=== PATIENT | male | born 1940 | race Caucasian/White ===

== ENCOUNTER 2018-06-18 12:12 | Outpatient (REF) | payer OTHER, SELFPAY ==
[2018-06-18 20:04] LABS: COMMENT (LAB VIEW ONLY) 51.95 mg/dL; Microalb ug/mg Crea 100.7 ug/mg Cr
== END 2018-06-18 12:32 ==
LOC: NCHCN 12:12
PROVIDERS: PCP Nurse Practitioner Family; Visit Provider Family Medicine
DX: E11.9 Type 2 diabetes mellitus without complications (principal)
CPT/HCPCS: 82043; 82570

== ENCOUNTER 2018-06-23 21:39 | Emergency (ER) | payer OTHER, SELFPAY ==
[2018-06-23 21:45] VITALS: BP 161/81; PULSE 87; RESP 16; TEMP 36.4; O2SAT 98
--- NOTE | 2018-06-23 21:50 | ED.GENADUL_ITS ---
Discharge Plan Disposition Patient Disposition: HOME Condition: Good Discharge Details Chief Complaint: FlankPain Clinical Impression: Calculus of proximal left ureter, Bladder calculus Primary Care Provider: Gertrude Cohen ED Provider: Gino York [place] Meds and New Rx's Prescriptions: New tamsulosin 0.4 mg capsule 0.4 mg PO DAILY Qty: 30 RF: 0 Continue insulin lispro [Humalog U-100 Insulin] 100 UNIT/1 ML solution Sub-Q TID RF: 0 losartan-hydrochlorothiazide [Hyzaar] 1 EACH tablet 1 ea PO DAILY RF: 0 insulin glargine [Lantus Solostar U-100 Insulin] 100 UNIT/1 ML insulin pen 50 unit SQ HS RF: 0 metoprolol tartrate 100 mg Tablet 100 mg PO BID RF: 0 Discharge Instructions Instructions: Tamsulosin (By mouth), Renal Colic (ED) Additional Instructions: Medication as directed to try to help passage of stone. Tylenol or Motrin as needed for pain. Keep appointment with [facility] urology but if problems please contact for follow-up sooner. Return to emergency department for fever, chills, increasing/uncontrolled pain, vomiting, inability to urinate. Referrals: [facility] [Outside] Medical Decision Making Patient here with left lower quadrant pain radiating to the back. Has history of kidney stones. Has known large bladder stone. I do not have access to his records and imaging that were done in [place]. He is not febrile and he looks well. His exam is unremarkable. Will obtain labs, urine, stone study. Currently tolerating pain and has no nausea so we will not medicate. Patient's white count is normal with no shift. Kidney function is baseline with creatinine of 1.6. Urinalysis positive for greater than 50 red cells and 20-50 white cells with few bacteria. CT scan does show a 1.5 x 1.4 cm bladder stone. He also has an enlarged prostate. He has a 7 mm UPJ stone with mild hydronephrosis. Case discussed with Dr. Brandt from urology at [facility]. Specific question regarding the white cells present in the urine without fever or white count. Likely this is related to bladder irritation from the bladder stone. Would send urine for culture but would not start antibiotics. Did discuss use of Flomax which she typically does recommend. Discussed this with patient and . Warned regarding side effects. Will start and give first dose tonight. Follow-up with urology at [facility] as planned. Return to ED for fever, chills , increasing/persistent pain, vomiting, other concerns. Lab Data Lab results reviewed: Yes I reviewed the patient's lab results. HPI General Mode of arrival: ambulatory . Date/Time Provider Initiated Documentation: 06/23/18 21:49 . Limitations to Documentation: no limitations . Information obtained by: patient and RN notes reviewed . HPI Narrative: Patient presents with complaint of left lower quadrant abdominal pain radiating to the left flank and back. Onset was this morning. At times it is rather intense. Had one episode of nausea and vomiting this evening. Has not had any fever or chills. Has a prior history of kidney stones. Has a known 1 inch bladder stone from imaging done earlier this month while on vacation in [place]. Just finished a round of Keflex for possible UTI. Pain at this point tolerable and he has no nausea. He has occasionally seen some blood in his urine over the last 24 hours. He has an appointment to see urology at [facility] next month. Related Data Home Medications Medication Instructions Recorded Confirmed insulin glargine [Lantus Solostar 50 unit SQ HS 03/02/13 06/23/18 U-100 Insulin] insulin lispro [Humalog U-100 0 units SUB-Q TID 03/02/13 06/23/18 Insulin] losartan-hydrochlorothiazide 1 ea PO DAILY 03/02/13 06/23/18 [Hyzaar] metoprolol tartrate 100 mg PO BID 06/23/18 06/23/18 tamsulosin 0.4 mg PO DAILY #30 cap 06/24/18 Previous Rx's Medication Instructions Recorded tamsulosin 0.4 mg PO DAILY #30 cap 06/24/18 Allergies Allergy/AdvReac Type Severity Reaction Status Date / Time No Known Allergies Allergy Unverified 06/23/18 21:49 General Stated Complaint: FlankPain CHIKA: 3 Review of Systems Constitutional Denies chills, Denies fever(s), Denies headache(s), Denies malaise and Denies weakness ENT Denies headache(s) and Denies neck pain Cardiovascular Denies chest pain, Denies pedal edema, Denies edema, Denies leg edema, Denies lightheadedness, Denies palpitations and Denies dyspnea Respiratory Denies dyspnea Gastrointestinal Reports abdominal pain, Denies diarrhea, Reports nausea and Reports vomiting Genitourinary Reports hematuria, Denies difficulty urinating, Denies dysuria, Denies urinary frequency and Reports urinary urgency Musculoskeletal Denies myalgias, Denies arthralgias, Denies joint swelling, Denies neck pain and Denies numbness Integumentary/Breasts Denies erythema and Denies rash Neurologic Denies confusion, Denies headache(s), Denies numbness and Denies weakness Psychiatric Denies confusion Endocrine Denies palpitations [facility] Medical History BPH (benign prostatic hyperplasia) (Chronic) Diabetes mellitus (Chronic) HTN (hypertension) (Chronic) Kidney stones (Chronic) Social History Smoking/Tobacco Use Status: Former Tobacco Use Surgical History H/O lithotripsy (Inactive) S/P TURP (Inactive) Exam Const General: cooperative, comfortable and no acute distress Orientation: alert and oriented x3 HENMT Head: normocephalic and atraumatic Mouth: moist mucous membranes Neck Neck: full ROM, trachea midline and supple Resp Effort & Inspection: normal respiratory effort Auscultation: clear to auscultation bilaterally Cardio Rate: regular rate Rhythm: regular rhythm Heart Sounds: S1 normal and S2 normal Pulses: normal peripheral pulses GI Inspection: non-distended Palpation: soft, not firm, no guarding and nontender Back/Spine/Pelvis Back: no CVA tenderness Thoracic/Lumbar Spine: thoraco-lumbar ROM normal Skin General skin exam: no erythema Rashes: no rashes Trauma: no lacerations or abrasions Other: warm and dry Neuro General: alert, oriented x3, no focal motor deficits and CN's II-XI intact bilaterally Cognition: normal cognition Speech: speech normal Sensory Exam: no sensory deficits noted Extrem General: normal to inspection, full ROM and no clubbing, cyanosis or edema Psych Appearance: grossly normal Mental Status: mental status grossly normal Affect: normal affect Attitude: cooperative Course Vital Signs Temperature 97.6 F 06/23/18 21:45 Pulse 87 06/23/18 21:45 Respiratory Rate 16 06/23/18 21:45 Blood Pressure 161/81 H 06/23/18 21:45 Pulse Oximetry 98 06/23/18 21:45 Temperature 97.6 F 06/23/18 21:45 Temperature Source Tympanic 06/23/18 21:45 Pulse 87 06/23/18 21:45 Respiratory Rate 16 06/23/18 21:45 Blood Pressure 161/81 H 06/23/18 21:45 Blood Pressure Position Sitting 06/23/18 21:45 Pulse Oximetry 98 06/23/18 21:45 Oxygen Delivery Method Room Air 06/23/18 21:45 Oxygen Flow Rate 0 06/23/18 21:45 Pain Level 4 06/23/18 21:45
[2018-06-23 22:07] LABS: Bilirubin Small (Negative); Blood Large (Negative); Clarity Clear; Glucose Negative (Negative); Ketones Negative (Negative); Leukocyte Esterase Trace (Negative); Nitrite Negative (Negative); Specific Gravity 1.025 (1.005-1.025); Urobilinogen 0.2 EU/dL (Up TO 0.2); pH 5.5 (5-8)
--- NOTE | 2018-06-23 22:10 | DI.CT_ITS ---
SYMPTOM/DIAGNOSIS: LEFT FLANK PAIN ABDOMINAL AND PELVIC CT : 06/23 CT examination of the abdomen and pelvis was performed without contrast administration. Images obtained through the lung bases were unremarkable. Visualized portions of the liver and spleen appear normal. Gallbladder is CT normal. No biliary dilatation. Pancreas is unremarkable. Abdominal aorta is of normal diameter. No significant abdominal wall hernia. Appendix appears normal. No evidence of diverticulitis or bowel obstruction. There is an apparent large calculus in the urinary bladder. Urinary bladder is nearly empty but may have a thickened wall. There are bilateral renal calculi with multiple renal calculi noted on the left and there is a 7 mm in diameter obstructing left UPJ stone. No additional ureteral calculi seen. CONCLUSION: Bilateral renal calculi noted with an obstructing 7 mm in diameter left UPJ calculus. Urinary bladder calculus also noted. Urinary bladder is nearly empty but there may be urinary bladder wall thickening, infection or neoplastic disease not excluded. Additional evaluation with cystoscopy should be considered.
[2018-06-23 22:24] LABS: Epithelial Cells Rare HPF (Negative); Other Cells Rare Renal (Negative); RBC >50 (0-2); WBC 20-50 HPF (0-5)
[2018-06-23 22:25] LABS: Bacteria Few HPF (Negative); C & S Indicated? Yes; Casts 5-10 Hyaline LPF (Negative); Crystals Negative HPF (Negative); Mucus Trace (Negative)
[2018-06-23] MEDS: Normal Saline 1,000 ML 1000 ML IV (23:05)
[2018-06-23] MEDS: Normal Saline Flush 10 ML SYR IVP (23:06)
[2018-06-23 23:10] LABS: Abs Immature Grans 0.03 k/cumm (0.0-0.09); Absolute Basophil Count 0.02 k/cumm (0.0-0.2); Absolute Eosinophil Count 0.14 k/cumm (0.0-0.7); Absolute Lymphocyte Count 0.88 k/cumm (1.2-3.4); Absolute Monocyte Count 0.76 k/cumm (0.11-0.7); Absolute Neutrophil Count 6.99 k/cumm (1.2-6.7); Basophils % 0.2; Eosinophils % 1.6; HCT 44.4 % (40.0-50.0); HGB 15.5 g/dL (13.5-17.5); Immature Grans % 0.3; Mean Corp. HGB Concentration 34.9 g/dL (32.0-36.0); Mean Corpuscular Hemoglobin 31.3 pg (27.0-33.0); Mean Corpuscular Volume 89.5 fL (80-95); Mean Platelet Volume 10.2 fL (8.0-11.0); Monocytes % 8.6; Neutrophils % 79.3; Platelet Count 165 x1000/uL (130-400); RBC 4.96 m/cumm (4.50-6.00); RBC Distribution Width 13.5 % (11.8-14.1); White Blood Cell Count 8.82 k/cumm (4.4-10.8)
[2018-06-23 23:17] LABS: Anion Gap 10.4 mmol/L (3-11); BUN 27 mg/dL (7-18); CO2 25.6 mmol/L (21.0-32.0); CREATININE 1.65 mg/dL (0.70-1.30); Calcium 8.5 mg/dL (8.5-10.1); Chloride 104 mmol/L (98-107); Estimated GFR 40.76 (mL/min/1.73m2); Glucose 183 mg/dL (70-100); Potassium 4.3 mmol/L (3.5-5.1); Sodium 140 mmol/L (136-145)
--- NOTE | 2018-06-23 23:30 | DI.VRAD_ITS ---
EXAM: CT Abdomen and Pelvis Without Intravenous Contrast CLINICAL HISTORY: 77 years old, male; Pain; Abdominal pain; Flank; Left; Patient HX: Left flank pain TECHNIQUE: Axial computed tomography images of the abdomen and pelvis without intravenous contrast. Coronal and sagittal reformatted images were created and reviewed. COMPARISON: No relevant prior studies available. FINDINGS: Lung bases: Unremarkable. No mass. No consolidation. ABDOMEN: Liver: Hepatic steatosis. Gallbladder and bile ducts: Unremarkable. No calcified stones. No ductal dilation. Pancreas: Unremarkable. No ductal dilation. Spleen: Unremarkable. No splenomegaly. Adrenals: Unremarkable. No mass. Kidneys and ureters: Nonobstructing 2 mm calculus within the collecting system of the right kidney. Multiple calculi within the collecting system of the left kidney. Mild left-sided hydronephrosis caused by 7 mm calculus at the left ureteropelvic junction. Stomach and bowel: Unremarkable. No obstruction. No mucosal thickening. PELVIS: Appendix: Normal appendix. Bladder: Urinary bladder is under distended, suggestion of mild thickening of the urinary bladder wall. Calculus within the lumen of the urinary bladder measures approximately 1.5 x 1.4 cm. Reproductive: Enlarged prostate, 6.3 x 5.4 cm. ABDOMEN and PELVIS: Intraperitoneal space: Unremarkable. No free air. No significant fluid collection. Bones/joints: Degenerative changes within the thoracic and lumbar spine. No acute fracture. No dislocation. Soft tissues: The abdomen is obese. Small bilateral fat-containing inguinal hernias. Vasculature: Atherosclerotic abdominal aorta and branches. No abdominal aortic aneurysm. Lymph nodes: Unremarkable. No enlarged lymph nodes. IMPRESSION: Bilateral nephrolithiasis. Mild left-sided hydronephrosis caused by 7 mm calculus at the left ureteropelvic junction. Urinary bladder calculus, 1.4 x 1.5 cm. See body of the report for the remainder of nonacute ancillary findings. Dictated and Authenticated by: Michi Montgomery MD. Ordering:KIMBER LEMUS MD
--- NOTE | 2018-06-23 23:59 | NUR.NOTE ---
Nursing Note: pt given crackers and apple juice per pt request with approval of . Tolerates this well.
[2018-06-24 00:30] VITALS: BP 145/81; PULSE 80; RESP 15; TEMP 36.4; O2SAT 98
[2018-06-24] MEDS: Tamsulosin 0.4 MG CAPCR PO (00:30)
== END 2018-06-24 00:51 | disposition home or self-care (01) ==
PROVIDERS: Emergency Provider Emergency Medicine; PCP Nurse Practitioner Family
DX: N13.2 Hydronephrosis with renal and ureteral calculous obstruction (principal); N21.0 Calculus in bladder; R11.2 Nausea with vomiting, unspecified; Z87.442 Personal history of urinary calculi; E11.9 Type 2 diabetes mellitus without complications; Z79.4 Long term (current) use of insulin; I10 Essential (primary) hypertension
CPT/HCPCS: 36415; 80048; 96360; 99284; 74176; 81003; 81015; 85025; 87086; 99285

== ENCOUNTER 2018-07-08 15:51 | Emergency (ER) | payer OTHER, SELFPAY ==
[2018-07-08 15:57] VITALS: BP 173/80; PULSE 75; RESP 12; TEMP 36.7; O2SAT 97
[2018-07-08 16:21] LABS: HCT 42.3 % (40.0-50.0); HGB 14.4 g/dL (13.5-17.5); Mean Corpuscular Hemoglobin 30.4 pg (27.0-33.0); Mean Corpuscular Volume 89.4 fL (80-95); Mean Platelet Volume 9.8 fL (8.0-11.0); Platelet Count 189 x1000/uL (130-400); RBC 4.73 m/cumm (4.50-6.00); RBC Distribution Width 12.7 % (11.8-14.1); White Blood Cell Count 9.25 k/cumm (4.4-10.8)
[2018-07-08 16:29] LABS: Anion Gap 8.2 mmol/L (3-11); BUN 37 mg/dL (7-18); CO2 28.8 mmol/L (21.0-32.0); CREATININE 2.54 mg/dL (0.70-1.30); Calcium 8.3 mg/dL (8.5-10.1); Chloride 101 mmol/L (98-107); Estimated GFR 24.78 (mL/min/1.73m2); Glucose 327 mg/dL (70-100); Potassium 4.3 mmol/L (3.5-5.1); Sodium 138 mmol/L (136-145)
[2018-07-08] MEDS: Lidocaine 2% Jelly 11 ML SYR (16:30)
[2018-07-08 16:33] LABS: INR 1.1 (1.0-3.5); Prothrombin Time 10.7 sec (9.3-10.8)
[2018-07-08 16:51] LABS: Bilirubin Negative (Negative); Blood Large (Negative); Glucose >=1000 mg/dL (Negative); Ketones Negative (Negative); Leukocyte Esterase Negative (Negative); Nitrite Negative (Negative); Urobilinogen 0.2 EU/dL (Up TO 0.2); pH 6.5 (5-8)
[2018-07-08 16:52] LABS: Clarity Cloudy
[2018-07-08 16:55] LABS: C & S Indicated? Yes; RBC >50 (0-2)
--- NOTE | 2018-07-08 17:01 | W.ED.GENAD ---
Discharge Plan Disposition Patient Disposition: HOME Condition: Good Discharge Details Chief Complaint: FlankPain Clinical Impression: Acute urinary retention Primary Care Provider: Gertrude Cohen ED Provider: Danielito Jacobs Home Meds and New Rx's Prescriptions: New levofloxacin 750 mg tablet 750 mg PO DAILY Qty: 6 RF: 0 ondansetron 4 mg tablet,disintegrating 4 mg PO TID PRN (Reason: nausea and vomiting) 5 Days Qty: 20 RF: 0 Continue insulin lispro [Humalog U-100 Insulin] 100 UNIT/1 ML solution Sub-Q TID RF: 0 losartan-hydrochlorothiazide [Hyzaar] 1 EACH tablet 1 ea PO DAILY RF: 0 insulin glargine [Lantus Solostar U-100 Insulin] 100 UNIT/1 ML insulin pen 50 unit SQ HS RF: 0 metoprolol tartrate 100 mg Tablet 100 mg PO BID RF: 0 tamsulosin 0.4 mg capsule 0.4 mg PO DAILY Qty: 30 RF: 0 Discharge Instructions Instructions: Urinary Retention in Men (ED), Urinary Leg Bag (GEN) Additional Instructions: follow up as scheduled with your urologist if you have fevers, severe uncontrolled pain or persistent vomit return to the emergency department. Discharge Data Discharge Physician: Danielito Jacobs Medical Decision Making 77 yo male with hx of recently diagnosed kidney stone and is due to see urology at [facility] on 07/18 per pt, comes in with hematuria and difficulty urinating today. Denies fevers and has no pain in the left flank after taking ibuprofen earlier. I suspect the hematuria is due to the kidney stone but is unable to urinate, will have [facility] labs reassuring, has mild vikash likely from the kidney stone, no leukocytosis or fevers so doubt pyelo or infected stone. Given the blood and difficulty urinating which could be from the stone, but given could be uti will start abx and advised f/u with urology and return precautions given Differential Diagnosis kidney stone, hematuria, uti HPI General Mode of arrival: ambulatory. Date/Time Provider Initiated Documentation: 07/08/18 16:05. Limitations to Documentation: no limitations. Information obtained by: patient. History of Present Illness 77 year old M presents to the emergency department with the chief complaint of hematuria, Patient started experiencing this day(s) (1) and it has been constant. No relieving factors improve symptom(s), No exacerbating factors reported . Patient notes no other symptoms.. Related Data Home Medications Medication Instructions Recorded Confirmed insulin glargine [Lantus Solostar 50 unit SQ HS 03/02/13 07/08/18 U-100 Insulin] insulin lispro [Humalog U-100 0 units SUB-Q TID 03/02/13 07/08/18 Insulin] losartan-hydrochlorothiazide 1 ea PO DAILY 03/02/13 07/08/18 [Hyzaar] metoprolol tartrate 100 mg PO BID 06/23/18 07/08/18 tamsulosin 0.4 mg PO DAILY #30 cap 06/24/18 07/08/18 levofloxacin 750 mg PO DAILY #6 tab 07/08/18 ondansetron 4 mg PO TID PRN 5 Days #20 tab 07/08/18 Previous Rx's Medication Instructions Recorded tamsulosin 0.4 mg PO DAILY #30 cap 06/24/18 levofloxacin 750 mg PO DAILY #6 tab 07/08/18 ondansetron 4 mg PO TID PRN 5 Days #20 tab 07/08/18 Allergies Allergy/AdvReac Type Severity Reaction Status Date / Time No Known Allergies Allergy Unverified 07/08/18 16:01 General Stated Complaint: FlankPain CHIKA: 3 Review of Systems Review of Systems All systems reviewed & are unremarkable except as noted in HPI and below Constitutional Denies chills, Denies fever(s) and Denies weakness Eyes Denies loss of vision ENT Denies change in voice Cardiovascular Denies chest pain and Denies dyspnea Respiratory Denies dyspnea Gastrointestinal Denies abdominal pain, Denies nausea and Denies vomiting Genitourinary Denies dysuria Musculoskeletal Denies joint swelling Integumentary/Breasts Denies rash Neurologic Denies loss of vision and Denies weakness Psychiatric Denies depression Endocrine Denies cold intolerance and Denies heat intolerance Allergic/Immunologic Reports urticaria [facility] Medical History BPH (benign prostatic hyperplasia) (Chronic) Diabetes mellitus (Chronic) HTN (hypertension) (Chronic) Kidney stones (Chronic) Social History Smoking/Tobacco Use Status: Former Tobacco Use Surgical History H/O lithotripsy (Inactive) S/P TURP (Inactive) Exam Const General: no acute distress Orientation: alert HENKS Head: normal to inspection Ears: external ears normal General nose exam: external nose normal Mouth: moist mucous membranes Eyes General: appearance normal, both eyes and all related structures Neck Neck: normal visual inspection Resp Effort & Inspection: normal respiratory effort and able to speak in complete sentences Cardio Rate: regular rate Skin General skin exam: no rashes or lesions noted Neuro General: alert and oriented x3 Extrem General: normal to inspection Psych Mental Status: mental status grossly normal Course Vital Signs Temperature 36.7 C 07/08/18 15:57 Pulse 75 07/08/18 15:57 Respiratory Rate 12 07/08/18 15:57 Blood Pressure 173/80 H 07/08/18 15:57 Pulse Oximetry 97 07/08/18 15:57 Temperature 36.7 C 07/08/18 15:57 Temperature Source Temporal Artery Scan 07/08/18 15:57 Pulse 75 07/08/18 15:57 Respiratory Rate 12 07/08/18 15:57 Respiratory Effort Non-Labored 07/08/18 15:59 Blood Pressure 173/80 H 07/08/18 15:57 Blood Pressure Position Sitting 07/08/18 15:57 Pulse Oximetry 97 07/08/18 15:57 Oxygen Delivery Method Blow by 07/08/18 15:57 Oxygen Flow Rate 0 07/08/18 15:57 Pain Level 3 07/08/18 15:57 Lab/Test Results Lab/Test Results: 07/08/18 16:30 Urine - Reflex from Ua Urine Culture - Pending Laboratory Tests Range/Units 07/08/18 07/08/18 07/08/18 16:14 16:14 16:14 WBC (4.4-10.8) k/cumm 9.25 RBC (4.50-6.00) m/cumm 4.73 Hgb (13.5-17.5) g/dL 14.4 Hct (40.0-50.0) % 42.3 MCV (80-95) fL 89.4 MCH (27.0-33.0) pg 30.4 MCHC (32.0-36.0) g/dL 34.0 RDW (11.8-14.1) % 12.7 Plt Count (130-400) x1000/uL 189 MPV (8.0-11.0) fL 9.8 PT (9.3-10.8) sec 10.7 INR (1.0-3.5) 1.1 Sodium (136-145) mmol/L 138 Potassium (3.5-5.1) mmol/L 4.3 Chloride (98-107) mmol/L 101 Carbon Dioxide (21.0-32.0) mmol/L 28.8 Anion Gap (3-11) mmol/L 8.2 BUN (7-18) mg/dL 37 H Creatinine (0.70-1.30) mg/dL 2.54 H Estimated GFR/1.73 m2 (mL/min/1.73m2) 24.78 Glucose (70-100) mg/dL 327 H Calcium (8.5-10.1) mg/dL 8.3 L Urine Color (Yellow) Urine Clarity Urine pH (5-8) Ur Specific Kimper (1.005-1.025) Urine Protein (Negative) mg/dL Urine Ketones (Negative) mg/dL Urine Blood (Negative) Urine Nitrite (Negative) Urine Bilirubin (Negative) Urine Urobilinogen (Up TO 0.2) EU/dL Ur Leukocyte Esterase (Negative) Urine RBC (0-2) Urine WBC Ur Epithelial Cells Urine Crystals Urine Bacteria Urine Mucus Ur Culture Indicated? Urine Glucose (Negative) mg/dL Range/Units 07/08/18 16:30 WBC (4.4-10.8) k/cumm RBC (4.50-6.00) m/cumm Hgb (13.5-17.5) g/dL Hct (40.0-50.0) % MCV (80-95) fL MCH (27.0-33.0) pg MCHC (32.0-36.0) g/dL RDW (11.8-14.1) % Plt Count (130-400) x1000/uL MPV (8.0-11.0) fL PT (9.3-10.8) sec INR (1.0-3.5) Sodium (136-145) mmol/L Potassium (3.5-5.1) mmol/L Chloride (98-107) mmol/L Carbon Dioxide (21.0-32.0) mmol/L Anion Gap (3-11) mmol/L BUN (7-18) mg/dL Creatinine (0.70-1.30) mg/dL Estimated GFR/1.73 m2 (mL/min/1.73m2) Glucose (70-100) mg/dL Calcium (8.5-10.1) mg/dL Urine Color (Yellow) Red Urine Clarity Cloudy Urine pH (5-8) 6.5 Ur Specific Kimper (1.005-1.025) 1.020 Urine Protein (Negative) mg/dL 100 H Urine Ketones (Negative) mg/dL Negative Urine Blood (Negative) Large H Urine Nitrite (Negative) Negative Urine Bilirubin (Negative) Negative Urine Urobilinogen (Up TO 0.2) EU/dL 0.2 Ur Leukocyte Esterase (Negative) Negative Urine RBC (0-2) >50 H Urine WBC Not Applicable Ur Epithelial Cells Not Applicable Urine Crystals Not Applicable Urine Bacteria Not Applicable Urine Mucus Not Applicable Ur Culture Indicated? Yes Urine Glucose (Negative) mg/dL >=1000 H
--- NOTE | 2018-07-08 17:05 | ED.GENADUL_ITS ---
Discharge Plan Disposition Patient Disposition: HOME Condition: Good Discharge Details Chief Complaint: FlankPain Clinical Impression: Acute urinary retention Primary Care Provider: Gertrude Cohen ED Provider: Danielito Jacobs Home Meds and New Rx's Prescriptions: New levofloxacin 750 mg tablet 750 mg PO DAILY Qty: 6 RF: 0 ondansetron 4 mg tablet,disintegrating 4 mg PO TID PRN (Reason: nausea and vomiting) 5 Days Qty: 20 RF: 0 Continue insulin lispro [Humalog U-100 Insulin] 100 UNIT/1 ML solution Sub-Q TID RF: 0 losartan-hydrochlorothiazide [Hyzaar] 1 EACH tablet 1 ea PO DAILY RF: 0 insulin glargine [Lantus Solostar U-100 Insulin] 100 UNIT/1 ML insulin pen 50 unit SQ HS RF: 0 metoprolol tartrate 100 mg Tablet 100 mg PO BID RF: 0 tamsulosin 0.4 mg capsule 0.4 mg PO DAILY Qty: 30 RF: 0 Discharge Instructions Instructions: Urinary Retention in Men (ED), Urinary Leg Bag (GEN) Additional Instructions: follow up as scheduled with your urologist if you have fevers, severe uncontrolled pain or persistent vomit return to the emergency department. Discharge Data Discharge Physician: Danielito Jacobs Medical Decision Making 77 yo male with hx of recently diagnosed kidney stone and is due to see urology at [facility] on 07/18 per pt, comes in with hematuria and difficulty urinating today. Denies fevers and has no pain in the left flank after taking ibuprofen earlier. I suspect the hematuria is due to the kidney stone but is unable to urinate, will have nursing place [facility] labs reassuring, has mild vikash likely from the kidney stone, no leukocytosis or fevers so doubt pyelo or infected stone. Given the blood and difficulty urinating which could be from the stone, but given could be uti will start abx and advised f/u with urology and return precautions given Differential Diagnosis kidney stone, hematuria, uti HPI General Mode of arrival: ambulatory . Date/Time Provider Initiated Documentation: 07/08/18 16:05 . Limitations to Documentation: no limitations . Information obtained by: patient . History of Present Illness 77 year old M presents to the emergency department with the chief complaint of hematuria, Patient started experiencing this day(s) (1) and it has been constant. No relieving factors improve symptom(s), No exacerbating factors reported . Patient notes no other symptoms.. Related Data Home Medications Medication Instructions Recorded Confirmed insulin glargine [Lantus Solostar 50 unit SQ HS 03/02/13 07/08/18 U-100 Insulin] insulin lispro [Humalog U-100 0 units SUB-Q TID 03/02/13 07/08/18 Insulin] losartan-hydrochlorothiazide 1 ea PO DAILY 03/02/13 07/08/18 [Hyzaar] metoprolol tartrate 100 mg PO BID 06/23/18 07/08/18 tamsulosin 0.4 mg PO DAILY #30 cap 06/24/18 07/08/18 levofloxacin 750 mg PO DAILY #6 tab 07/08/18 ondansetron 4 mg PO TID PRN 5 Days #20 tab 07/08/18 Previous Rx's Medication Instructions Recorded tamsulosin 0.4 mg PO DAILY #30 cap 06/24/18 levofloxacin 750 mg PO DAILY #6 tab 07/08/18 ondansetron 4 mg PO TID PRN 5 Days #20 tab 07/08/18 Allergies Allergy/AdvReac Type Severity Reaction Status Date / Time No Known Allergies Allergy Unverified 07/08/18 16:01 General Stated Complaint: FlankPain CHIKA: 3 Review of Systems Review of Systems All systems reviewed & are unremarkable except as noted in HPI and below Constitutional Denies chills, Denies fever(s) and Denies weakness Eyes Denies loss of vision ENT Denies change in voice Cardiovascular Denies chest pain and Denies dyspnea Respiratory Denies dyspnea Gastrointestinal Denies abdominal pain, Denies nausea and Denies vomiting Genitourinary Denies dysuria Musculoskeletal Denies joint swelling Integumentary/Breasts Denies rash Neurologic Denies loss of vision and Denies weakness Psychiatric Denies depression Endocrine Denies cold intolerance and Denies heat intolerance Allergic/Immunologic Reports urticaria [facility] Medical History BPH (benign prostatic hyperplasia) (Chronic) Diabetes mellitus (Chronic) HTN (hypertension) (Chronic) Kidney stones (Chronic) Social History Smoking/Tobacco Use Status: Former Tobacco Use Surgical History H/O lithotripsy (Inactive) S/P TURP (Inactive) Exam Const General: no acute distress Orientation: alert HENMD Head: normal to inspection Ears: external ears normal General nose exam: external nose normal Mouth: moist mucous membranes Eyes General: appearance normal, both eyes and all related structures Neck Neck: normal visual inspection Resp Effort & Inspection: normal respiratory effort and able to speak in complete sentences Cardio Rate: regular rate Skin General skin exam: no rashes or lesions noted Neuro General: alert and oriented x3 Extrem General: normal to inspection Psych Mental Status: mental status grossly normal Course Vital Signs Temperature 36.7 C 07/08/18 15:57 Pulse 75 07/08/18 15:57 Respiratory Rate 12 07/08/18 15:57 Blood Pressure 173/80 H 07/08/18 15:57 Pulse Oximetry 97 07/08/18 15:57 Temperature 36.7 C 07/08/18 15:57 Temperature Source Temporal Artery Scan 07/08/18 15:57 Pulse 75 07/08/18 15:57 Respiratory Rate 12 07/08/18 15:57 Respiratory Effort Non-Labored 07/08/18 15:59 Blood Pressure 173/80 H 07/08/18 15:57 Blood Pressure Position Sitting 07/08/18 15:57 Pulse Oximetry 97 07/08/18 15:57 Oxygen Delivery Method Blow by 07/08/18 15:57 Oxygen Flow Rate 0 07/08/18 15:57 Pain Level 3 07/08/18 15:57 Lab/Test Results Lab/Test Results: 07/08/18 16:30 Urine - Reflex from Ua Urine Culture - Pending Laboratory Tests Range/Units 07/08/18 07/08/18 07/08/18 16:14 16:14 16:14 WBC (4.4-10.8) k/cumm 9.25 RBC (4.50-6.00) m/cumm 4.73 Hgb (13.5-17.5) g/dL 14.4 Hct (40.0-50.0) % 42.3 MCV (80-95) fL 89.4 MCH (27.0-33.0) pg 30.4 MCHC (32.0-36.0) g/dL 34.0 RDW (11.8-14.1) % 12.7 Plt Count (130-400) x1000/uL 189 MPV (8.0-11.0) fL 9.8 PT (9.3-10.8) sec 10.7 INR (1.0-3.5) 1.1 Sodium (136-145) mmol/L 138 Potassium (3.5-5.1) mmol/L 4.3 Chloride (98-107) mmol/L 101 Carbon Dioxide (21.0-32.0) mmol/L 28.8 Anion Gap (3-11) mmol/L 8.2 BUN (7-18) mg/dL 37 H Creatinine (0.70-1.30) mg/dL 2.54 H Estimated GFR/1.73 m2 (mL/min/1.73m2) 24.78 Glucose (70-100) mg/dL 327 H Calcium (8.5-10.1) mg/dL 8.3 L Urine Color (Yellow) Urine Clarity Urine pH (5-8) Ur Specific Shickley (1.005-1.025) Urine Protein (Negative) mg/dL Urine Ketones (Negative) mg/dL Urine Blood (Negative) Urine Nitrite (Negative) Urine Bilirubin (Negative) Urine Urobilinogen (Up TO 0.2) EU/dL Ur Leukocyte Esterase (Negative) Urine RBC (0-2) Urine WBC Ur Epithelial Cells Urine Crystals Urine Bacteria Urine Mucus Ur Culture Indicated? Urine Glucose (Negative) mg/dL Range/Units 07/08/18 16:30 WBC (4.4-10.8) k/cumm RBC (4.50-6.00) m/cumm Hgb (13.5-17.5) g/dL Hct (40.0-50.0) % MCV (80-95) fL MCH (27.0-33.0) pg MCHC (32.0-36.0) g/dL RDW (11.8-14.1) % Plt Count (130-400) x1000/uL MPV (8.0-11.0) fL PT (9.3-10.8) sec INR (1.0-3.5) Sodium (136-145) mmol/L Potassium (3.5-5.1) mmol/L Chloride (98-107) mmol/L Carbon Dioxide (21.0-32.0) mmol/L Anion Gap (3-11) mmol/L BUN (7-18) mg/dL Creatinine (0.70-1.30) mg/dL Estimated GFR/1.73 m2 (mL/min/1.73m2) Glucose (70-100) mg/dL Calcium (8.5-10.1) mg/dL Urine Color (Yellow) Red Urine Clarity Cloudy Urine pH (5-8) 6.5 Ur Specific Shickley (1.005-1.025) 1.020 Urine Protein (Negative) mg/dL 100 H Urine Ketones (Negative) mg/dL Negative Urine Blood (Negative) Large H Urine Nitrite (Negative) Negative Urine Bilirubin (Negative) Negative Urine Urobilinogen (Up TO 0.2) EU/dL 0.2 Ur Leukocyte Esterase (Negative) Negative Urine RBC (0-2) >50 H Urine WBC Not Applicable Ur Epithelial Cells Not Applicable Urine Crystals Not Applicable Urine Bacteria Not Applicable Urine Mucus Not Applicable Ur Culture Indicated? Yes Urine Glucose (Negative) mg/dL >=1000 H
[2018-07-08] MEDS: LEVOFLOXACIN 500 MG, LEVOFLOXACIN 250 MG 750 MG PO (17:18)
[2018-07-08] MEDS: Ondansetron O.D.T. 4 MG TABEF PO (17:19)
[2018-07-08 17:42] VITALS: BP 168/75; PULSE 77; RESP 14; TEMP 37; O2SAT 95
== END 2018-07-08 17:44 | disposition home or self-care (01) ==
LOC: ER 17:49
PROVIDERS: Emergency Provider Emergency Medicine; PCP Nurse Practitioner Family
DX: R33.9 Retention of urine, unspecified (principal); R31.9 Hematuria, unspecified
CPT/HCPCS: 36415; 51702; 80048; 85027; 99283; 81003; 81015; 85610; 87086

== ENCOUNTER 2018-07-09 08:07 | Inpatient (IN) | payer OTHER, SELFPAY ==
[2018-07-09 08:26] VITALS: BP 157/64; PULSE 98; RESP 16; TEMP 36.2; O2SAT 97
--- NOTE | 2018-07-09 08:41 | W.ED.GENAD ---
Discharge Plan Disposition Patient Disposition: [facility] INPATIENT Condition: Improving Discharge Details Chief Complaint: Urinary Clinical Impression: Hematuria of undiagnosed cause Primary Care Provider: Gertrude Cohen ED Provider: Cristian Lau Home Meds and New Rx's Prescriptions: No Action insulin lispro [Humalog U-100 Insulin] 100 UNIT/1 ML solution Sub-Q TID RF: 0 losartan-hydrochlorothiazide [Hyzaar] 1 EACH tablet 1 ea PO DAILY RF: 0 insulin glargine [Lantus Solostar U-100 Insulin] 100 UNIT/1 ML insulin pen 50 unit SQ HS RF: 0 levofloxacin 750 mg tablet 750 mg PO DAILY Qty: 6 RF: 0 ondansetron 4 mg tablet,disintegrating 4 mg PO TID PRN (Reason: nausea and vomiting) 5 Days Qty: 20 RF: 0 metoprolol tartrate 100 mg Tablet 100 mg PO BID RF: 0 tamsulosin 0.4 mg capsule 0.4 mg PO DAILY Qty: 30 RF: 0 Medical Decision Making 77-year-old male with recurrent hematuria. He was seen in the emergency room last night and Riggs catheter was placed. He has known intravesicular and intrarenal kidney stones. He is afebrile and pleasant without significant distress. Riggs was changed to 20-gauge in patient with return of bloody urine. Patient did subsequently have recurrent obstruction of catheter with bloody urine. Laboratories obtained which show stable hematocrit but creatinine which is risen to 2.3 from baseline of approximately 1.6. Case discussed with urology, Dr. Reid who saw the patient in consultation, will place three-way catheter, plan for admission with probable cystoscopy tomorrow morning. Lab Data Lab results reviewed: Yes I reviewed the patient's lab results. Laboratory Tests Range/Units 07/09/18 07/09/18 09:06 09:06 WBC (4.4-10.8) k/cumm 11.31 H RBC (4.50-6.00) m/cumm 4.48 L Hgb (13.5-17.5) g/dL 13.8 Hct (40.0-50.0) % 39.9 L MCV (80-95) fL 89.1 MCH (27.0-33.0) pg 30.8 MCHC (32.0-36.0) g/dL 34.6 RDW (11.8-14.1) % 12.6 Plt Count (130-400) x1000/uL 183 MPV (8.0-11.0) fL 10.0 Immature Gran % 0.3 Neutrophils % 85.6 Lymphocytes % 6.1 Monocytes % 6.3 Eosinophils % 1.5 Basophils % 0.2 Absolute Neutrophils (1.2-6.7) k/cumm 9.68 H Absolute Lymphocytes (1.2-3.4) k/cumm 0.69 L Absolute Monocytes (0.11-0.7) k/cumm 0.71 H Absolute Eosinophils (0.0-0.7) k/cumm 0.17 Absolute Basophils (0.0-0.2) k/cumm 0.02 Sodium (136-145) mmol/L 136 Potassium (3.5-5.1) mmol/L 4.1 Chloride (98-107) mmol/L 101 Carbon Dioxide (21.0-32.0) mmol/L 24.6 Anion Gap (3-11) mmol/L 10.4 BUN (7-18) mg/dL 36 H Creatinine (0.70-1.30) mg/dL 2.38 H Estimated GFR/1.73 m2 (mL/min/1.73m2) 26.71 Glucose (70-100) mg/dL 257 H Calcium (8.5-10.1) mg/dL 8.1 L Total Bilirubin (0.2-1.0) mg/dL 0.6 AST (15-37) U/L 11 L ALT (12-78) U/L 17 Alkaline Phosphatase (46-116) U/L 87 Total Protein (6.4-8.2) g/dL 7.0 Albumin (3.4-5.0) g/dL 3.0 L HPI General Mode of arrival: ambulatory. Date/Time Provider Initiated Documentation: 07/09/18 08:25. Limitations to Documentation: no limitations. Information obtained by: patient and family. History of Present Illness described as moderate, Quality is described as constant, and it has been intermittent. No relieving factors improve symptom(s), No exacerbating factors reported . HPI Narrative: 77-year-old male who states that he has had hematuria and flank pain intermittently since beginning of May when he was initially seen in [facility]. Was seen again in the emergency department 2 weeks ago for recurrent hematuria and is been told he has a large bladder stone as well as small kidney stones. He was seen last night for urinary retention and hematuria, Riggs catheter placed, and now presents for urinary retention with recurrent blood clots and hematuria. Denies fever, vomiting. He states that he has otherwise been well. He has not had any recent urology follow-up but does have plans to see [facility] 18 July Related Data Home Medications Medication Instructions Recorded Confirmed insulin glargine [Lantus Solostar 50 unit SQ HS 03/02/13 07/09/18 U-100 Insulin] insulin lispro [Humalog U-100 0 units SUB-Q TID 03/02/13 07/09/18 Insulin] losartan-hydrochlorothiazide 1 ea PO DAILY 03/02/13 07/09/18 [Hyzaar] metoprolol tartrate 100 mg PO BID 06/23/18 07/09/18 tamsulosin 0.4 mg PO DAILY #30 cap 06/24/18 07/09/18 levofloxacin 750 mg PO DAILY #6 tab 07/08/18 07/09/18 ondansetron 4 mg PO TID PRN 5 Days #20 tab 07/08/18 07/09/18 Previous Rx's Medication Instructions Recorded tamsulosin 0.4 mg PO DAILY #30 cap 06/24/18 levofloxacin 750 mg PO DAILY #6 tab 07/08/18 ondansetron 4 mg PO TID PRN 5 Days #20 tab 07/08/18 Allergies Allergy/AdvReac Type Severity Reaction Status Date / Time No Known Allergies Allergy Unverified 07/09/18 08:28 General Stated Complaint: Urinary CHIKA: 4 Review of Systems Review of Systems 8 systems reviewed and otherwise negative [facility] Medical History BPH (benign prostatic hyperplasia) (Chronic) Diabetes mellitus (Chronic) HTN (hypertension) (Chronic) Kidney stones (Chronic) Social History Smoking/Tobacco Use Status: Former Tobacco Use Surgical History H/O lithotripsy (Inactive) S/P TURP (Inactive) Exam Narrative Exam Narrative: GEN: awake, alert, oriented 3. Pleasant, well groomed, interactive. HEAD: Normocephalic, atraumatic ENT: Mucous membranes moist, oropharynx unremarkable, External ear exam unremarkable EYES: PERRL, EOMI NECK: Full ROM, no MARIA DOLORES, no menigismus CHEST/RESP: Nontender, clear to auscultation bilateral, no wheeze/rhonchi/rales CARDIOVASCULAR: RRR, no murmur, rub isa. 2+ Rad pulse bilateral ABDOMEN: Soft, nontender, no mass. +Bowel sounds. Patient is circumcised. Riggs catheter in place. No hematuria at the time of exam. No swelling EXT: Full ROM, no edema, no rash Neuro: Grossly normal neurologic exam, conversant, interactive. Psych: Speech fluent, thoughts congruent, affect normal Course Vital Signs Temperature 36.2 C L 07/09/18 08:26 Pulse 98 H 07/09/18 08:26 Respiratory Rate 16 07/09/18 08:26 Blood Pressure 157/64 H 07/09/18 08:26 Pulse Oximetry 97 07/09/18 08:26 Temperature 36.2 C L 07/09/18 08:26 Temperature Source Skin 07/09/18 08:26 Pulse 98 H 07/09/18 08:26 Respiratory Rate 16 07/09/18 08:26 Respiratory Effort Non-Labored 07/09/18 08:26 Blood Pressure 157/64 H 07/09/18 08:26 Blood Pressure Position Sitting 07/09/18 08:26 Pulse Oximetry 97 07/09/18 08:26 Oxygen Delivery Method Room Air 07/09/18 08:26 Oxygen Flow Rate 0 07/09/18 08:26 End Tidal Co2 2 07/09/18 08:26
--- NOTE | 2018-07-09 08:44 | ED.GENADUL_ITS ---
Discharge Plan Disposition Patient Disposition: [facility] INPATIENT Condition: Improving Discharge Details Chief Complaint: Urinary Clinical Impression: Hematuria of undiagnosed cause Primary Care Provider: Gertrude Cohen ED Provider: Cristian Lau Home Meds and New Rx's Prescriptions: No Action insulin lispro [Humalog U-100 Insulin] 100 UNIT/1 ML solution Sub-Q TID RF: 0 losartan-hydrochlorothiazide [Hyzaar] 1 EACH tablet 1 ea PO DAILY RF: 0 insulin glargine [Lantus Solostar U-100 Insulin] 100 UNIT/1 ML insulin pen 50 unit SQ HS RF: 0 levofloxacin 750 mg tablet 750 mg PO DAILY Qty: 6 RF: 0 ondansetron 4 mg tablet,disintegrating 4 mg PO TID PRN (Reason: nausea and vomiting) 5 Days Qty: 20 RF: 0 metoprolol tartrate 100 mg Tablet 100 mg PO BID RF: 0 tamsulosin 0.4 mg capsule 0.4 mg PO DAILY Qty: 30 RF: 0 Medical Decision Making 77-year-old male with recurrent hematuria. He was seen in the emergency room last night and Riggs catheter was placed. He has known intravesicular and intrarenal kidney stones. He is afebrile and pleasant without significant distress. Riggs was changed to 20-gauge in patient with return of bloody urine. Patient did subsequently have recurrent obstruction of catheter with bloody urine. Laboratories obtained which show stable hematocrit but creatinine which is risen to 2.3 from baseline of approximately 1.6. Case discussed with urology, Dr. Reid who saw the patient in consultation, will place three-way catheter, plan for admission with probable cystoscopy tomorrow morning. Lab Data Lab results reviewed: Yes I reviewed the patient's lab results. Laboratory Tests Range/Units 07/09/18 07/09/18 09:06 09:06 WBC (4.4-10.8) k/cumm 11.31 H RBC (4.50-6.00) m/cumm 4.48 L Hgb (13.5-17.5) g/dL 13.8 Hct (40.0-50.0) % 39.9 L MCV (80-95) fL 89.1 MCH (27.0-33.0) pg 30.8 MCHC (32.0-36.0) g/dL 34.6 RDW (11.8-14.1) % 12.6 Plt Count (130-400) x1000/uL 183 MPV (8.0-11.0) fL 10.0 Immature Gran % 0.3 Neutrophils % 85.6 Lymphocytes % 6.1 Monocytes % 6.3 Eosinophils % 1.5 Basophils % 0.2 Absolute Neutrophils (1.2-6.7) k/cumm 9.68 H Absolute Lymphocytes (1.2-3.4) k/cumm 0.69 L Absolute Monocytes (0.11-0.7) k/cumm 0.71 H Absolute Eosinophils (0.0-0.7) k/cumm 0.17 Absolute Basophils (0.0-0.2) k/cumm 0.02 Sodium (136-145) mmol/L 136 Potassium (3.5-5.1) mmol/L 4.1 Chloride (98-107) mmol/L 101 Carbon Dioxide (21.0-32.0) mmol/L 24.6 Anion Gap (3-11) mmol/L 10.4 BUN (7-18) mg/dL 36 H Creatinine (0.70-1.30) mg/dL 2.38 H Estimated GFR/1.73 m2 (mL/min/1.73m2) 26.71 Glucose (70-100) mg/dL 257 H Calcium (8.5-10.1) mg/dL 8.1 L Total Bilirubin (0.2-1.0) mg/dL 0.6 AST (15-37) U/L 11 L ALT (12-78) U/L 17 Alkaline Phosphatase (46-116) U/L 87 Total Protein (6.4-8.2) g/dL 7.0 Albumin (3.4-5.0) g/dL 3.0 L HPI General Mode of arrival: ambulatory . Date/Time Provider Initiated Documentation: 07/09/18 08:25 . Limitations to Documentation: no limitations . Information obtained by: patient and family . History of Present Illness described as moderate, Quality is described as constant, and it has been intermittent. No relieving factors improve symptom(s), No exacerbating factors reported . HPI Narrative: 77-year-old male who states that he has had hematuria and flank pain intermittently since beginning of May when he was initially seen in [facility]. Was seen again in the emergency department 2 weeks ago for recurrent hematuria and is been told he has a large bladder stone as well as small kidney stones. He was seen last night for urinary retention and hematuria , Riggs catheter placed, and now presents for urinary retention with recurrent blood clots and hematuria. Denies fever, vomiting. He states that he has otherwise been well. He has not had any recent urology follow-up but does have plans to see [facility] 18 July Related Data Home Medications Medication Instructions Recorded Confirmed insulin glargine [Lantus Solostar 50 unit SQ HS 03/02/13 07/09/18 U-100 Insulin] insulin lispro [Humalog U-100 0 units SUB-Q TID 03/02/13 07/09/18 Insulin] losartan-hydrochlorothiazide 1 ea PO DAILY 03/02/13 07/09/18 [Hyzaar] metoprolol tartrate 100 mg PO BID 06/23/18 07/09/18 tamsulosin 0.4 mg PO DAILY #30 cap 06/24/18 07/09/18 levofloxacin 750 mg PO DAILY #6 tab 07/08/18 07/09/18 ondansetron 4 mg PO TID PRN 5 Days #20 tab 07/08/18 07/09/18 Previous Rx's Medication Instructions Recorded tamsulosin 0.4 mg PO DAILY #30 cap 06/24/18 levofloxacin 750 mg PO DAILY #6 tab 07/08/18 ondansetron 4 mg PO TID PRN 5 Days #20 tab 07/08/18 Allergies Allergy/AdvReac Type Severity Reaction Status Date / Time No Known Allergies Allergy Unverified 07/09/18 08:28 General Stated Complaint: Urinary CHIKA: 4 Review of Systems Review of Systems 8 systems reviewed and otherwise negative [facility] Medical History BPH (benign prostatic hyperplasia) (Chronic) Diabetes mellitus (Chronic) HTN (hypertension) (Chronic) Kidney stones (Chronic) Social History Smoking/Tobacco Use Status: Former Tobacco Use Surgical History H/O lithotripsy (Inactive) S/P TURP (Inactive) Exam Narrative Exam Narrative: GEN: awake, alert, oriented 3. Pleasant, well groomed, interactive. HEAD: Normocephalic, atraumatic ENT: Mucous membranes moist, oropharynx unremarkable, External ear exam unremarkable EYES: PERRL, EOMI NECK: Full ROM, no MARIA DOLORES, no menigismus CHEST/RESP: Nontender, clear to auscultation bilateral, no wheeze/rhonchi/rales CARDIOVASCULAR: RRR, no murmur, rub isa. 2+ Rad pulse bilateral ABDOMEN: Soft, nontender, no mass. +Bowel sounds. Patient is circumcised. Riggs catheter in place. No hematuria at the time of exam. No swelling EXT: Full ROM, no edema, no rash Neuro: Grossly normal neurologic exam, conversant, interactive. Psych: Speech fluent, thoughts congruent, affect normal Course Vital Signs Temperature 36.2 C L 07/09/18 08:26 Pulse 98 H 07/09/18 08:26 Respiratory Rate 16 07/09/18 08:26 Blood Pressure 157/64 H 07/09/18 08:26 Pulse Oximetry 97 07/09/18 08:26 Temperature 36.2 C L 07/09/18 08:26 Temperature Source Skin 07/09/18 08:26 Pulse 98 H 07/09/18 08:26 Respiratory Rate 16 07/09/18 08:26 Respiratory Effort Non-Labored 07/09/18 08:26 Blood Pressure 157/64 H 07/09/18 08:26 Blood Pressure Position Sitting 07/09/18 08:26 Pulse Oximetry 97 07/09/18 08:26 Oxygen Delivery Method Room Air 07/09/18 08:26 Oxygen Flow Rate 0 07/09/18 08:26 End Tidal Co2 2 07/09/18 08:26
[2018-07-09] MEDS: Lidocaine 2% Jelly 11 ML SYR (09:05)
[2018-07-09 09:23] LABS: Abs Immature Grans 0.03 k/cumm (0.0-0.09); Absolute Basophil Count 0.02 k/cumm (0.0-0.2); Absolute Eosinophil Count 0.17 k/cumm (0.0-0.7); Absolute Lymphocyte Count 0.69 k/cumm (1.2-3.4); Absolute Monocyte Count 0.71 k/cumm (0.11-0.7); Basophils % 0.2; Eosinophils % 1.5; HCT 39.9 % (40.0-50.0); HGB 13.8 g/dL (13.5-17.5); Immature Grans % 0.3; Lymphocytes % 6.1; Mean Corp. HGB Concentration 34.6 g/dL (32.0-36.0); Mean Corpuscular Hemoglobin 30.8 pg (27.0-33.0); Mean Corpuscular Volume 89.1 fL (80-95); Monocytes % 6.3; Neutrophils % 85.6; Platelet Count 183 x1000/uL (130-400); RBC 4.48 m/cumm (4.50-6.00); RBC Distribution Width 12.6 % (11.8-14.1); White Blood Cell Count 11.31 k/cumm (4.4-10.8)
[2018-07-09 09:26] LABS: Absolute Neutrophil Count 9.68 k/cumm (1.2-6.7)
[2018-07-09 09:36] LABS: ALT 17 U/L (12-78); AST 11 U/L (15-37); Alkaline Phosphatase 87 U/L (46-116); Anion Gap 10.4 mmol/L (3-11); BUN 36 mg/dL (7-18); Bilirubin, Total 0.6 mg/dL (0.2-1.0); CO2 24.6 mmol/L (21.0-32.0); CREATININE 2.38 mg/dL (0.70-1.30); Calcium 8.1 mg/dL (8.5-10.1); Chloride 101 mmol/L (98-107); Estimated GFR 26.71 (mL/min/1.73m2); Glucose 257 mg/dL (70-100); Potassium 4.1 mmol/L (3.5-5.1); Sodium 136 mmol/L (136-145)
--- NOTE | 2018-07-09 11:04 | PDOC.ERCMPRO ---
Care Management Progress Note 07/09-Dr. Quesada requested assistance with an appt [place] [facility]. Patient has appt scheduled already, requested appt to be moved up if possible. Called [facility] and spoke with Aiden. Aiden stated there were no appts available sooner but was willing to put Gokul on the cancellation list. Gokul's appt is scheduled for July [address] Quesada aware of the above, patient given an appt card.
--- NOTE | 2018-07-09 15:57 | HPE_ITS ---
Date of service: 07/09/18 Time of Service: 14:33 Assessment and Plan (1) Gross hematuria: Current visit: Yes Status: Acute We will keep him hospitalized overnight for continuous bladder irrigation. We have him scheduled for a surgical procedure tomorrow morning during which we will run a cystoscope up through the penis into the bladder. We will plan on evacuating any residual blood clots. We will look for underlying pathology such as of bladder tumor. We know that he has a large bladder stone so we will be prepared to treat the stone with the holmium laser. Depending on the results of the cystoscopy we may be able to let him go home tomorrow. We may need to keep him in the hospital for an additional 24 hours for bladder irrigation. (2) Bladder calculi: Current visit: Yes Status: Acute (3) Bilateral kidney stones: Current visit: Yes Status: Acute History of Present Illness Chief Complaint: Gross hematuria Narrative: This is a 77-year-old gentleman who has a past history of kidney stones. He recalls having had a ESWL treatment multiple years ago. Over the past month to 2 he has had intermittent episodes of gross hematuria with clots. At his initial presentation, he was evaluated at an outside hospital. He was found to have a large bladder stone as well as left-sided kidney stones. He had an additional episode of hematuria with clots once he returned home. He was reevaluated with a CT scan which again demonstrated a large bladder stone as well as nonobstructing kidney stones bilaterally. In the past 48 hours he is presented to the emergency room several times with clot retention. Initially, he had a Riggs catheter placed. The catheter again became clotted. I saw him in the emergency room and placed in irrigating catheter. His urine is still bloody but is now flowing. He is admitted for bladder irrigation. We are planning on a cystoscopy tomorrow morning to evacuate any residual clots and to treat his known bladder stone. He has had a transurethral resection of the prostate in the past. He has no known history of gout or hyperparathyroid disease. Review of Systems Constitutional Comments: He denies fever or chills He has no vision change or dysphasia He has diabetes but no thyroid dysfunction He has no cough or sputum production He has occasional tachycardia and hypertension. He has no chest pain. He has had nausea and vomiting associated with renal colic. He has no bleeding disorders or anemia He has no seizures or strokes [facility] Medical History BPH (benign prostatic hyperplasia) (Chronic) Diabetes mellitus (Chronic) HTN (hypertension) (Chronic) Kidney stones (Chronic) Social History Smoking/Tobacco Use Status: Former Tobacco Use Surgical History H/O lithotripsy (Inactive) S/P TURP (Inactive) Meds Home Medications Medication Instructions Recorded Confirmed Type insulin glargine [Lantus Solostar 50 unit SQ HS 03/02/13 07/09/18 History U-100 Insulin] insulin lispro [Humalog U-100 0 units SUB-Q TID 03/02/13 07/09/18 History Insulin] losartan-hydrochlorothiazide 1 ea PO DAILY 03/02/13 07/09/18 History [Hyzaar] metoprolol tartrate 100 mg PO BID 06/23/18 07/09/18 History tamsulosin 0.4 mg PO DAILY #30 cap 06/24/18 07/09/18 Rx levofloxacin 750 mg PO DAILY #6 tab 07/08/18 07/09/18 Rx ondansetron 4 mg PO TID PRN 5 Days #20 tab 07/08/18 07/09/18 Rx Allergies Allergy/AdvReac Type Severity Reaction Status Date / Time No Known Allergies Allergy Unverified 07/09/18 08:28 Exam Narrative Exam Narrative: He is a very pleasant gentleman he is in no current distress he is cooperative he does not appear septic or toxic His neck is supple with no masses His lungs are clear Cardiac exam reveals a regular rate and rhythm His abdomen is obese but soft with no masses there is no guarding or rebound tenderness He is circumcised. The urethral meatus is patent. I passed a 24 Faroese hematuria catheter through the urethra into the bladder. The catheter balloon was inflated with 30 cc of sterile water. I hand irrigated the catheter for a few small clots. Continuous bladder irrigation was then begun. There is no edema in the lower extremities. No amputations or deformities are found. There is dried skin on the right elbow consistent with psoriasis. He is awake, alert and oriented. Results Labs : 10/15/18 09:06 07/09/18 09:06 Laboratory Results - last 24 hr 07/09/18 07/09/18 09:06 09:06 WBC 11.31 H RBC 4.48 L Hgb 13.8 Hct 39.9 L MCV 89.1 MCH 30.8 MCHC 34.6 RDW 12.6 Plt Count 183 MPV 10.0 Immature Gran % 0.3 Neutrophils % 85.6 Lymphocytes % 6.1 Monocytes % 6.3 Eosinophils % 1.5 Basophils % 0.2 Absolute Neutrophils 9.68 H Absolute Lymphocytes 0.69 L Absolute Monocytes 0.71 H Absolute Eosinophils 0.17 Absolute Basophils 0.02 Sodium 136 Potassium 4.1 Chloride 101 Carbon Dioxide 24.6 Anion Gap 10.4 BUN 36 H Creatinine 2.38 H Estimated GFR/1.73 m2 26.71 Glucose 257 H Calcium 8.1 L Total Bilirubin 0.6 AST 11 L ALT 17 Alkaline Phosphatase 87 Total Protein 7.0 Albumin 3.0 L Last Vital Signs Temp 36.2 C L 07/09/18 08:26 Pulse 98 H 07/09/18 08:26 Resp 16 07/09/18 08:26 BP 157/64 H 07/09/18 08:26 Pulse Ox 97 07/09/18 08:26
[2018-07-09 18:11] VITALS: BP 151/69; PULSE 82; RESP 16; TEMP 37.1; O2SAT 96
[2018-07-09 18:27] VITALS: BP 169/73; PULSE 79; RESP 19; TEMP 37.1; O2SAT 97
[2018-07-09] MEDS: Metoprolol 50 MG TAB 100 MG PO (19:11)
[2018-07-09 19:35] VITALS: BP 139/79; PULSE 88; RESP 19; TEMP 37.3; O2SAT 97
[2018-07-09] MEDS: Insulin Glargine 300 UNITS/3 ML PEN 50 UNITS SC (21:20)
[2018-07-10] VITALS (13 sets, daily range): BP systolic 125–167; BP diastolic 66–82; PULSE 57–79; RESP 12–20; TEMP 35.2–36.7; O2SAT 94–97
--- NOTE | 2018-07-10 07:16 | W.PM.PROGNOT ---
Assessment and Plan (1) Gross hematuria: Current visit: Yes Status: Acute For cystoscopy, clot evacuation and treatment of bladder stone this AM. Ultimately, we may need to address his known renal stones. We may also need to address his bladder outlet if it is contributing to his inability to pass stones from his bladder. (2) Bladder calculi: Current visit: Yes Status: Acute Subjective Interval history since last seen: He has been reasonably comfortable overnight, but did have clot retention requiring hand irrigation of the catheter early this AM. He has no fever/chills. Exam Narrative Exam Narrative: He is in no current distress. His CBI is clear this morning. Objective Objective Clinical Data: Abnormal lab results 07/09/18 07/09/18 Range/Units 09:06 09:06 WBC 11.31 H (4.4-10.8) k/cumm RBC 4.48 L (4.50-6.00) m/cumm Hct 39.9 L (40.0-50.0) % Absolute Neutrophils 9.68 H (1.2-6.7) k/cumm Absolute Lymphocytes 0.69 L (1.2-3.4) k/cumm Absolute Monocytes 0.71 H (0.11-0.7) k/cumm BUN 36 H (7-18) mg/dL Creatinine 2.38 H (0.70-1.30) mg/dL Glucose 257 H (70-100) mg/dL Calcium 8.1 L (8.5-10.1) mg/dL AST 11 L (15-37) U/L Albumin 3.0 L (3.4-5.0) g/dL Vital Signs Temperature 36.5 C 07/10/18 03:40 Temperature Source Tympanic 07/10/18 03:40 Pulse 68 07/10/18 03:40 Pulse Rhythm Regular 07/09/18 19:36 Respiratory Rate 18 07/10/18 03:40 Respiratory Effort Non-Labored 07/09/18 19:36 Respiratory Depth Normal 07/09/18 19:36 Respiratory Pattern Normal 07/09/18 19:36 Blood Pressure 160/78 H 07/10/18 03:40 Blood Pressure Position Sitting 07/09/18 08:26 Pulse Oximetry 96 07/10/18 03:40 Oxygen Delivery Method Room Air 07/10/18 03:40 Oxygen Flow Rate 0 07/10/18 03:40 End Tidal Co2 2 07/09/18 08:26 Pain Level 0 07/10/18 03:40 Comment 07/10/18 03:40 Intake & Output 07/09/18 07/09/18 07/10/18 11:59 23:59 11:59 Output Total 1600 / 1600 1600 / 1600 Balance -1600 / -1600 -1600 / -1600 Weight 112.491 kg 112.491 kg Output: Urine 1600 / 1600 1600 / 1600 Other: Urine Color Dark Red Straw Alvarez Urine Appearance Clots Hematuria Clear Comment continous bladder irrigation Laboratory Results WBC 11.31 k/cumm (4.4-10.8) H 07/09/18 09:06 RBC 4.48 m/cumm (4.50-6.00) L 07/09/18 09:06 Hgb 13.8 g/dL (13.5-17.5) 07/09/18 09:06 Hct 39.9 % (40.0-50.0) L 07/09/18 09:06 MCV 89.1 fL (80-95) 07/09/18 09:06 MCH 30.8 pg (27.0-33.0) 07/09/18 09:06 MCHC 34.6 g/dL (32.0-36.0) 07/09/18 09:06 RDW 12.6 % (11.8-14.1) 07/09/18 09:06 Plt Count 183 x1000/uL (130-400) 07/09/18 09:06 MPV 10.0 fL (8.0-11.0) 07/09/18 09:06 Immature Gran % 0.3 07/09/18 09:06 Neutrophils % 85.6 07/09/18 09:06 Lymphocytes % 6.1 07/09/18 09:06 Monocytes % 6.3 07/09/18 09:06 Eosinophils % 1.5 07/09/18 09:06 Basophils % 0.2 07/09/18 09:06 Absolute Neutrophils 9.68 k/cumm (1.2-6.7) H 07/09/18 09:06 Absolute Lymphocytes 0.69 k/cumm (1.2-3.4) L 07/09/18 09:06 Absolute Monocytes 0.71 k/cumm (0.11-0.7) H 07/09/18 09:06 Absolute Eosinophils 0.17 k/cumm (0.0-0.7) 07/09/18 09:06 Absolute Basophils 0.02 k/cumm (0.0-0.2) 07/09/18 09:06 Sodium 136 mmol/L (136-145) 07/09/18 09:06 Potassium 4.1 mmol/L (3.5-5.1) 07/09/18 09:06 Chloride 101 mmol/L (98-107) 07/09/18 09:06 Carbon Dioxide 24.6 mmol/L (21.0-32.0) 07/09/18 09:06 Anion Gap 10.4 mmol/L (3-11) 07/09/18 09:06 BUN 36 mg/dL (7-18) H 07/09/18 09:06 Creatinine 2.38 mg/dL (0.70-1.30) H 07/09/18 09:06 Estimated GFR/1.73 m2 26.71 (mL/min/1.73m2) 07/09/18 09:06 Glucose 257 mg/dL (70-100) H 07/09/18 09:06 Calcium 8.1 mg/dL (8.5-10.1) L 07/09/18 09:06 Total Bilirubin 0.6 mg/dL (0.2-1.0) 07/09/18 09:06 AST 11 U/L (15-37) L 07/09/18 09:06 ALT 17 U/L (12-78) 07/09/18 09:06 Alkaline Phosphatase 87 U/L (46-116) 07/09/18 09:06 Total Protein 7.0 g/dL (6.4-8.2) 07/09/18 09:06 Albumin 3.0 g/dL (3.4-5.0) L 07/09/18 09:06
[2018-07-10] MEDS: Lactated Ringers 1,000 ML 75 ML IV ×5 (07:41→22:11)
[2018-07-10 07:57] LABS: BUN 39 mg/dL (7-18); CREATININE 2.64 mg/dL (0.70-1.30); Calcium 8.1 mg/dL (8.5-10.1); Chloride 102 mmol/L (98-107); Glucose 186 mg/dL (70-100); Potassium 4.1 mmol/L (3.5-5.1); Sodium 138 mmol/L (136-145)
[2018-07-10] MEDS: Lidocaine 2% Jelly 11 ML SYR (08:02)
[2018-07-10] MEDS: Losartan 50 MG TAB PO (11:45)
[2018-07-10] MEDS: Metoprolol 50 MG TAB 100 MG PO ×2 (11:45→19:30)
[2018-07-10] MEDS: Tamsulosin 0.4 MG CAPCR PO (11:45)
--- NOTE | 2018-07-10 12:50 | ROE_ITS ---
DATE OF PROCEDURE: July 10, 2018 PREOPERATIVE DIAGNOSES: 1. Gross hematuria. 2. Clot retention. 3. Bladder stone. POSTOPERATIVE DIAGNOSES: Same. PROCEDURE: Cystoscopy; clot evacuation; holmium laser of large bladder stone; evacuation of stone fr daniels. SURGEON: Krzysztof Reid M.D. ANESTHESIA: General. COMPLICATIONS: None. ESTIMATED BLOOD LOSS: Minimal. HISTORY: This is a 77-year-old gentleman who has a history of bladder and kidney stones. He has had ESWL as well as a transurethral resection of the prostate over ten years ago in [facility]. He recently has been dealing with gross hematuria. The bleeding initially started when he was visiti in [place], [place]. He was seen in an Emergency Room in [place], [place], and was found to have a large bladder stone. He has had recurrent episodes of hematuria and actually developed clot retention yesterday. Repeat i maging studies in our facility again demonstrated a very large bladder stone, as well as non-obstruct ing kidney stones. Yesterday when he presented to the Emergency Room, a catheter was placed. The ca theter clotted off so we placed an irrigating catheter and [facility] He presents today for cystoscopy with clot evacuation, stone manipulation and possible transure thral resection of any underlying bladder tumor. OPERATIVE REPORT: The patient was brought to the operating room on 07/10/18. He was given a preoper ative dose of oral antibiotics. After successful induction of general anesthesia, he was placed in t he dorsal lithotomy position. His indwelling Riggs catheter was removed. His genitalia was then pre pped and draped. A 22 [place] rigid cystoscope was passed through the urethra into the bladder. The urethra and bladde r were inspected with the 30-degree lens. The pendulous, bulbous and membranous urethras appeared normal with no strictures. The prostatic ure thra showed tri-lobar enlargement with large lateral lobes of the prostate and a very prominent media n lobe. Just behind the median lobe a large, white-tinted stone was identified. The stone was surrounded by numerous blood clots. I used a Jayla syringe to evacuate a large amount of clot. No underlying mucosal abnormality was id entified. We then used a 1000 micron holmium laser fiber to fragment the stone. We used a power setting of 800 and a rate of 8. Once the exterior white component was broken through, we visualized a yellowish-ti nted stone. Finally at the center of the stone mass was a black-tinted stone. Once the stone was adequately fragmented, we irrigated multiple fragments out using our Jayla syring e. Any stones that appeared to be adherent to the bladder wall and mucosa were grasped with an allig ator forceps and removed. At the completion of the procedure no large stone fragments were identified at all. We filled the bl adder with irrigant and removed the cystoscope. We then passed a 24 Central African hematuria catheter back t hrough the urethra into the bladder. The catheter balloon was inflated with 30 cc's of sterile water . Continuous bladder irrigation with saline was begun. We then placed a B and O suppository rectally to help cut down on postoperative bladder spasms. The patient tolerated the procedure well. There were no complications. He was taken to the recovery room in stable condition. cc: Gertrude Cohen N.P.
--- NOTE | 2018-07-10 14:38 | PHARADMIT ---
Admission Pharmacy Clinical Review hematuria Code Status Full Code Current Weight 112.491 kg Renally Cleared and Narrow Therapeutic Index Meds Crcl ~31.1 mL/min using adjusted body weight current meds okay QTc Value / Action Taken BP Control, Fever BP 127/66 afebrile Electrolytes reviewed within normal limits DVT Prophylaxis none- had cystoscopy today Opiate Usage / Scheduled Bowel Regimen Ordered prn/no Plt/SCr for Heparin / Enoxaparin plt 183 SCr 2.64 INR for Warfarin n/a H/H stable, WBC/Bands h/h 13.8/39.9 wbc 11.31 Antibiotic appropriateness n/a Cultures and Sensitivities n/a Surgical ABX d/c within 24 hr n/a DM control / Insulin Dosing Bg 186 scheduled insulin glargine Heart Failure (Check EF%) (CLAUDIA's, B-Block, Diuretics) hydrochlorothiazide, losartan, metoprolol IV to PO Switch n/a Home Meds Reviewed multiple QTc prolonging meds: levofloxacin, ondansetron Home Meds Not Ordered levofloxacin (was ordered for 1 dose before surgery), insulin lispro Comments
--- NOTE | 2018-07-10 15:18 | PDOC.CMIN ---
Care Management Initial Assess REASON FOR HOSPITALIZATION:: Hematuria PAST MEDICAL HISTORY/PAST SURGICAL HISTORY:: BPH, DM, HTN, Kidney stones, lithotripsy, TURP PREVIOUS FUNCTIONAL STATUS/SOCIAL/FAMILY SUPPORTS:: Gokul resides in [place], [place] with his , María Elena. He reports being in the [employer] for twenty years prior to working for [employer] in [place] and working many different jobs after that. His María Elena worked for many years at [employer] in the finance department and now works at [employer] residential placement center for children in [place], [place]. The couple has a son who resides with his family in [place] who they keep in good contact with. Gokul reports being independent with all ADLs, and is enjoying halfway. He and his attend [facility] weekly. CURRENT FUNCTIONAL STATUS:: Gokul is lying in bed when meets with him. He is pleasant in interaction and forthcoming with information. ADVANCE DIRECTIVES:: On file at [facility]. Has patient been provided with information about the portal?: Yes Did the patient sign up for the portal?: Yes (Previously) CODE STATUS:: Full Code INSURANCE COVERAGE / FINANCIAL ISSUES:: [employer] [facility] CURRENT HOME/COMMUNITY SERVICES/EQUIPMENT:: 's Pension PRIMARY CARE PHYSICIAN:: Gertrude Cohen POTENTIAL DISCHARGE NEEDS:: Follow up appointments with Dr. Reid and PCP. PATIENT/FAMILY EDUCATION NEEDS:: Review of discharge instructions, discuss Ask Me Three. ANTICIPATED BARRIERS TO DISCHARGE:: None identified. TRANSPORTATION:: Via private vehicle with his , María Elena. PLAN:: Gokul will discharge home when ready per MD. He will follow up with his PCP and plan of care as prescribed. He will transport via private vehicle with his , María Elena. No additional services anticipated at this time.
--- NOTE | 2018-07-10 15:32 | INITIAL_ITS ---
Care Management Initial Assess REASON FOR HOSPITALIZATION:: Hematuria PAST MEDICAL HISTORY/PAST SURGICAL HISTORY:: BPH, DM, HTN, Kidney stones, lithotripsy, TURP PREVIOUS FUNCTIONAL STATUS/SOCIAL/FAMILY SUPPORTS:: Gokul resides in [place], [place] with his , María Elena. He reports being in the [employer] for twenty years prior to working for [email or web address] in [place] and working many different jobs after that. His María Elena worked for many years at [employer] in the finance department and now works at [employer] residential placement center for children in [place], [place]. The couple has a son who resides with his family in [place] who they keep in good contact with. Gokul reports being independent with all ADLs, and is enjoying senior living. He and his attend [facility] weekly. CURRENT FUNCTIONAL STATUS:: Gokul is lying in bed when meets with him. He is pleasant in interaction and forthcoming with information. ADVANCE DIRECTIVES:: On file at [facility]. Has patient been provided with information about the portal?: Yes Did the patient sign up for the portal?: Yes (Previously) CODE STATUS:: Full Code INSURANCE COVERAGE / FINANCIAL ISSUES:: [employer] [facility] CURRENT HOME/COMMUNITY SERVICES/EQUIPMENT:: 's Pension PRIMARY CARE PHYSICIAN:: Gertrude Cohen POTENTIAL DISCHARGE NEEDS:: Follow up appointments with Dr. Reid and PCP. PATIENT/FAMILY EDUCATION NEEDS:: Review of discharge instructions, discuss Ask Me Three. ANTICIPATED BARRIERS TO DISCHARGE:: None identified. TRANSPORTATION:: Via private vehicle with his , María Elena. PLAN:: Gokul will discharge home when ready per MD. He will follow up with his PCP and plan of care as prescribed. He will transport via private vehicle with his , María Elena. No additional services anticipated at this time.
[2018-07-10] MEDS: Insulin Glargine 300 UNITS/3 ML PEN 50 UNITS SC (21:24)
[2018-07-11 00:33] VITALS: BP 156/81; PULSE 66; RESP 19; TEMP 37.1; O2SAT 95
--- NOTE | 2018-07-11 07:34 | W.PM.PROGNOT ---
Assessment and Plan (1) Bladder calculi: Current visit: Yes Status: Acute We will go ahead and remove his bladder irrigation and catheter this morning. We will plan on discharging him. He will follow-up with me in about 3 weeks. We should be able to have his stone analysis back by that time. We can then discuss our plan for his known kidney stones and his low known enlargement of the prostate. Subjective Interval history since last seen: Chief complaint: Postoperative day #1 The patient underwent cystoscopy with holmium laser bladder stone yesterday. We were able to clear all large stone fragments we continued with bladder irrigation overnight to flush out any smaller fragments. He has had some catheter discomfort and spasms but no episodes of retention. He has no fever or chills. He has no flank pain. Review of systems: He has no nausea or vomiting He has no chest pain or palpitations He has no cough or sputum Exam Narrative Exam Narrative: He looks well. He does not appear septic or toxic. His abdomen is soft with no masses. His CBI is clear. I went ahead and removed his urethral catheter. Objective Objective Clinical Data: Abnormal lab results 07/10/18 Range/Units 06:30 BUN 39 H (7-18) mg/dL Creatinine 2.64 H (0.70-1.30) mg/dL Glucose 186 H (70-100) mg/dL Calcium 8.1 L (8.5-10.1) mg/dL Vital Signs Temperature 37.1 C 07/11/18 00:33 Temperature Source Tympanic 07/11/18 00:33 Pulse 66 07/11/18 00:33 Pulse Rhythm Regular 07/10/18 19:25 Respiratory Rate 19 07/11/18 00:33 Respiratory Effort 07/10/18 19:25 Respiratory Depth Normal 07/10/18 19:25 Respiratory Pattern Normal 07/10/18 19:25 Blood Pressure 156/81 H 07/11/18 00:33 Blood Pressure Position Sitting 07/09/18 08:26 Pulse Oximetry 95 07/11/18 00:33 Respiratory End-tidal CO2 33 07/10/18 10:50 Oxygen Delivery Method Room Air 07/11/18 00:33 Oxygen Flow Rate 0 07/11/18 00:33 End Tidal Co2 2 07/09/18 08:26 Pain Level 0 07/10/18 14:30 Comment 07/10/18 11:20 Intake & Output 07/10/18 07/10/18 07/11/18 11:59 23:59 11:59 Intake Total 1328.75 / 1328.75 1700.00 / 1700.00 Output Total 1600 / 1600 1100 / 1100 Balance -271.25 / -271.25 600.00 / 600.00 Intake: IV 1088.75 / 1088.75 1460.00 / 1460.00 Oral 240 / 240 240 / 240 Output: Urine 1600 / 1600 1100 / 1100 Other: Urine Color Pale Conner Alvarez Conner Urine Appearance Clear Clear Hematuria Comment very pale pink clear continuous bladder irrigatin. no clots noted. Emesis Description None Laboratory Results WBC 11.31 k/cumm (4.4-10.8) H 07/09/18 09:06 RBC 4.48 m/cumm (4.50-6.00) L 07/09/18 09:06 Hgb 13.8 g/dL (13.5-17.5) 07/09/18 09:06 Hct 39.9 % (40.0-50.0) L 07/09/18 09:06 MCV 89.1 fL (80-95) 07/09/18 09:06 MCH 30.8 pg (27.0-33.0) 07/09/18 09:06 MCHC 34.6 g/dL (32.0-36.0) 07/09/18 09:06 RDW 12.6 % (11.8-14.1) 07/09/18 09:06 Plt Count 183 x1000/uL (130-400) 07/09/18 09:06 MPV 10.0 fL (8.0-11.0) 07/09/18 09:06 Immature Gran % 0.3 07/09/18 09:06 Neutrophils % 85.6 07/09/18 09:06 Lymphocytes % 6.1 07/09/18 09:06 Monocytes % 6.3 07/09/18 09:06 Eosinophils % 1.5 07/09/18 09:06 Basophils % 0.2 07/09/18 09:06 Absolute Neutrophils 9.68 k/cumm (1.2-6.7) H 07/09/18 09:06 Absolute Lymphocytes 0.69 k/cumm (1.2-3.4) L 07/09/18 09:06 Absolute Monocytes 0.71 k/cumm (0.11-0.7) H 07/09/18 09:06 Absolute Eosinophils 0.17 k/cumm (0.0-0.7) 07/09/18 09:06 Absolute Basophils 0.02 k/cumm (0.0-0.2) 07/09/18 09:06 Sodium 138 mmol/L (136-145) 07/10/18 06:30 Potassium 4.1 mmol/L (3.5-5.1) 07/10/18 06:30 Chloride 102 mmol/L (98-107) 07/10/18 06:30 Carbon Dioxide 25.0 mmol/L (21.0-32.0) 07/10/18 06:30 Anion Gap 11.0 mmol/L (3-11) 07/10/18 06:30 BUN 39 mg/dL (7-18) H 07/10/18 06:30 Creatinine 2.64 mg/dL (0.70-1.30) H 07/10/18 06:30 Estimated GFR/1.73 m2 23.70 (mL/min/1.73m2) 07/10/18 06:30 Glucose 186 mg/dL (70-100) H 07/10/18 06:30 Calcium 8.1 mg/dL (8.5-10.1) L 07/10/18 06:30 Total Bilirubin 0.6 mg/dL (0.2-1.0) 07/09/18 09:06 AST 11 U/L (15-37) L 07/09/18 09:06 ALT 17 U/L (12-78) 07/09/18 09:06 Alkaline Phosphatase 87 U/L (46-116) 07/09/18 09:06 Total Protein 7.0 g/dL (6.4-8.2) 07/09/18 09:06 Albumin 3.0 g/dL (3.4-5.0) L 07/09/18 09:06
[2018-07-11 07:35] VITALS: BP 127/66; PULSE 67; RESP 20; TEMP 36.5; O2SAT 95
[2018-07-11] MEDS: Metoprolol 50 MG TAB 100 MG PO (08:05)
[2018-07-11] MEDS: Losartan 50 MG TAB PO (08:06)
[2018-07-11] MEDS: Tamsulosin 0.4 MG CAPCR PO (08:06)
--- NOTE | 2018-07-11 10:13 | PDOC.CMDIS ---
LACE Index Scoring Tool - Questions: Length of Stay (in days): 3 Acuity (Admit via E.D.?): Yes Comorbidities: Diabetes w/o Complication E.D. Visits: 3 - Answers: Total Score: 10 Risk of Readmission: High Risk Care Management Discharge Reason for Hospitalization: Hematuria Discharge Plan: Gokul will discharge home when ready per MD. He will follow up with his PCP and plan of care as prescribed. He will transport via private vehicle with his , María Elena. No additional services anticipated at this time. Patient/Family Education Needs: Review discharge instructions, discuss Ask Me Three.
--- NOTE | 2018-07-12 17:02 | DSE_ITS ---
DATE OF ADMISSION: July 09, 2018 DATE OF DISCHARGE: July 11, 2018 FINAL DISCHARGE DIAGNOSES: #1. Bladder stone. #2. Urinary clot retention. #3. Gross hematuria. HISTORY: This is a 77-year-old gentleman who developed an episode of gross hematuria about a month a go. He was seen at an outside hospital where he was found to have a large bladder stone. He also vance d nonobstructing kidney stones. He had several recent Emergency Room visits to our facility because of bleeding and clot retention. He had a Riggs catheter placed but his catheter clotted off. He was then admitted for bladder irriga tion and a planned procedure for his known large bladder stone. HOSPITAL COURSE: This has already been documented in the discharge plan document. To reiterate, he was admitted for continuous bladder irrigation. He also required some hand irrigation of the cathete r. He was taken to the Operating Room on hospital day #2 where he underwent cystoscopy and clot evac uation. We identified a large irregular bladder stone. We treated the stone with a Holmium laser an d evacuated all of his large stone fragments. We continued bladder irrigation overnight to flush out any smaller stone fragments. On postoperative day #1 he was doing well. His catheter was removed and he was discharged to home. He was not started on any new medications. He was instructed to follow up with me in my office in ab out three to four weeks for stone analysis. His discharge medications included: 1. His previous dosing of insulin that he uses for sliding scale. He also has 50 units that he take s subcutaneously at bedtime. 2. Hyzaar, 1 tablet daily. 3. Metoprolol 100 mg twice a day. 4. Tamsulosin 0.4 mg daily. 5. He will continue with his Levaquin but he should take it every other day rather than once a day. He may resume regular activity and a regular diet. cc: Gertrude Cohen N.P.
== END 2018-07-11 09:33 | disposition home or self-care (01) | DRG 700 ==
LOC: ER 15:31 → MS 16:21
PROVIDERS: Emergency Medicine; Admitting Provider Urology; Emergency Provider Student in an Organized Health Care Education/Training Program; PCP Nurse Practitioner Family; Visit Provider Urology
PROC: 0TCB8ZZ Extirpation of Matter from Bladder, Via Natural or Artificial Opening Endoscopic (ICD-10-PCS; CPT 52325; principal; 2018-07-10 07:30)
DX: N32.89 Other specified disorders of bladder; R33.8 Other retention of urine; R31.0 Gross hematuria; E11.9 Type 2 diabetes mellitus without complications; Z79.4 Long term (current) use of insulin; N40.0 Benign prostatic hyperplasia without lower urinary tract symptoms; I10 Essential (primary) hypertension; N20.0 Calculus of kidney
CPT/HCPCS: 52325; 52001; 36415; 36416; 51703; 80048; 80053; 82962; 99222; 99232; 99285; 82360; 85025; 99284; J1885; J2405; J3010

== ENCOUNTER 2018-08-20 01:21 | Outpatient (CLI) | payer OTHER, SELFPAY ==
--- NOTE | 2018-08-20 08:45 | DI.US_ITS ---
SYMPTOM/DIAGNOSIS: RENAL STONES N20.09 RENAL ULTRASOUND: Comparison is made with noncontrast CT dated Jun 12. The right kidney measures 11.8 cm in length. A 6 mm stone is seen near the lower pole of the right kidney. There is no hydronephrosis. The left kidney measures 13.7 cm in length. There is mild left hydronephrosis. Multiple left renal calculi are seen. There are calcifications seen greatest at the lower pole of the left kidney. The prostate is enlarged and presses on the base of the bladder. The approximate volume is 100 cc. Pre-void bladder volume measures 138 cc. The post void residual is 19 cc. There is a small amount of debris in the bladder. The previously noted large stone in the bladder is no longer seen. IMPRESSION: Bilateral nephrolithiasis, greatest at the lower poles. There is mild left hydronephrosis. The prostate is enlarged.
== END 2018-08-20 01:41 ==
PROVIDERS: PCP Nurse Practitioner Family; Visit Provider Urology
DX: N20.0 Calculus of kidney (principal); N13.30 Unspecified hydronephrosis; N40.0 Benign prostatic hyperplasia without lower urinary tract symptoms
CPT/HCPCS: 76770

== ENCOUNTER 2018-08-27 08:39 | Day surgery (SDC) | payer OTHER, SELFPAY ==
[2018-08-27 09:10] VITALS: BP 133/86; PULSE 87; RESP 18; TEMP 36.9; O2SAT 96
--- NOTE | 2018-08-27 10:05 | NUR.NOTE ---
08/27/18 pt took aleve 220mg tabs 3 on Monday night. Reported to Dr Reid and surgery rescheduled to 09/03/18. Pt to go to Dr Nino for rx.
--- NOTE | 2018-09-03 13:55 | W.PM.DSUDISC ---
Discharge Plan Disposition Patient Disposition: HOME Condition: Stable Discharge Details Reason For Visit: (L) RENAL STONE Attending Provider: Krzysztof Reid Primary Care Provider: Gertrude Cohen Home Meds and New Rx's Prescriptions: No Action tramadol 50 mg tablet 50 mg PO Q6H PRN (Reason: pain) Qty: 30 RF: 0 finasteride 5 mg tablet 5 mg PO DAILY Qty: 90 RF: 12 insulin lispro [Humalog U-100 Insulin] 100 UNIT/1 ML solution Sub-Q TID RF: 0 losartan-hydrochlorothiazide [Hyzaar] 1 EACH tablet 1 ea PO DAILY RF: 0 insulin glargine [Lantus Solostar U-100 Insulin] 100 UNIT/1 ML insulin pen 50 unit SQ HS RF: 0 metoprolol tartrate 100 mg Tablet 100 mg PO BID RF: 0 aspirin [Aspir-81] 81 mg Tablet,Delayed Release (Dr/Ec) 81 mg PO DAILY RF: 0 naproxen sodium [Aleve] 220 mg Tablet 1 tab PO PRN PRNRF: 0 Discharge Instructions Additional Instructions: my office will contact pt to arrange repeat cystoscopy, left stent removal, left ureteroscopy with removal of residual stones Pt has Ultram script at home to use for pain - may also use NSAids and Tylenol as he usually does Activity:: Activity as Tolerated Diet:: As Tolerated Discharge Orders Discharge Orders: Discharge Order (Routine); Ordered 09/03/18 Ordered By: Krzysztof Reid Discharge Data Discharge Date/Time-TO BE ENTERED AT DEPARTURE: 08/27/18 09:40 DS: Diagnosis Discharge Diagnosis (1) Bilateral kidney stones: Status: Acute
== END 2018-08-27 09:40 ==
LOC: SUR 08:39
PROVIDERS: PCP Nurse Practitioner Family; Visit Provider Urology
DX: N20.0 Calculus of kidney (principal); Z53.09 Procedure and treatment not carried out because of other contraindication

== ENCOUNTER 2018-09-03 10:05 | Day surgery (SDC) | payer OTHER, SELFPAY ==
[2018-09-03 10:15] VITALS: BP 143/84; PULSE 77; RESP 17; TEMP 36.1; O2SAT 100
[2018-09-03] MEDS: Lactated Ringers 1,000 ML 80 ML IV (11:00)
--- NOTE | 2018-09-03 12:04 | DI.RAD_ITS ---
SYMPTOMS/DIAGNOSIS: KIDNEY STONES C-ARM FLUOROSCOPY, RETROGRADE IN OR: Fluoroscopy Time: 82.2 sec, 33.83 mGy Fluoroscopy was provided for Dr. Reid during retrograde examination. Please see procedure note for details.
[2018-09-03] MEDS: Omnipaque 300 MG/ML 50 ML BTL (12:39)
[2018-09-03 13:53] VITALS: BP 166/75; PULSE 72; RESP 15; TEMP 36.4; O2SAT 94
[2018-09-03 13:58] VITALS: BP 169/71; PULSE 71; RESP 12; TEMP 36.4; O2SAT 96
[2018-09-03 14:03] VITALS: BP 159/95; PULSE 76; RESP 15; TEMP 36.4; O2SAT 97
[2018-09-03] MEDS: Lactated Ringers 1,000 ML 75 ML IV (14:14)
[2018-09-03 14:18] VITALS: BP 174/84; PULSE 66; RESP 11; TEMP 36.5; O2SAT 97
[2018-09-03 15:12] VITALS: BP 151/85; PULSE 67; RESP 17; TEMP 35.8; O2SAT 97
--- NOTE | 2018-09-03 16:53 | ROE_ITS ---
DATE OF PROCEDURE: September 03, 2018 PREOPERATIVE DIAGNOSIS: Left ureteral stone. POSTOPERATIVE DIAGNOSIS: Same. PROCEDURE: Cystoscopy, left retrograde pyelogram, left ureteral dilation, flexible ureteroscopy with holmium laser of ureteral stones, stone extractions, insert left ureteral stent. SURGEON: Krzysztof Reid M.D. ANESTHESIA: General. COMPLICATIONS: None. ESTIMATED BLOOD LOSS: Minimal. HISTORY: This is a 78-year-old gentleman who has a history of a large bladder stone. He underwent c ystoscopy with holmium laser and evacuation of his stones. He was also identified as having bilatera l renal stones, including a relatively large stone at the ureteropelvic junction. He presents now fo r ureteroscopic stone manipulation. OPERATIVE REPORT: The patient was brought to the operating room on 09/03/18. After successful induc tion of general anesthesia, he was placed in the dorsal lithotomy position. His genitalia was preppe d and draped. A 22 [place] rigid cystoscope was passed through the urethra into the bladder. The bladder was inspec humberto with the 30-degree lens. The left ureteral orifice was identified and was cannulated with a 6 [place] access catheter. A retro grade film was obtained and demonstrated a filling defect in the proximal ureter. A Glidewire was then advanced through the access catheter and maneuvered about the level of the stone . The access catheter was removed and was replaced with a dual-lumen catheter. A second wire was th en positioned. Initially I was unable to pass the ureteral access sheath, so I dilated the ureteral orifice with a 1 0 mm UroMax balloon. We were then able to pass the access sheath up to the level of the stone. The flexible ureteroscope was then passed through the access sheath. The proximal ureteral stone was visualized and was treated with the holmium laser. We utilized a 272 micron fiber and used both dus ting settings and fracturing settings. We were able to grasp several stone fragments and remove them in their entirety. At the completion of the procedure there were still multiple stone fragments present. We elected to place a ureteral stent to allow all of his edema to subside. We will then return for a staged proced ure in about two weeks. We will plan for a cystoscopy, stent removal and repeat ureteroscopy to luz ve any residual stone fragments. We chose a 6 [place] variable-length stent and advanced the stent over the safety wire. The proximal end was curled in the renal pelvis and the distal end was curled within the bladder. The patient tolerated this procedure well with no complications.
[2018-09-05 15:49] LABS: 1st Constituent: 100% Uric acid; Source: Left Ureter
== END 2018-09-03 15:46 | disposition home or self-care (01) ==
PROVIDERS: PCP Nurse Practitioner Family; Visit Provider Urology
PROC: (CPT 52344; principal; 2018-09-03 12:00)
DX: N20.1 Calculus of ureter (principal); N40.0 Benign prostatic hyperplasia without lower urinary tract symptoms; E11.9 Type 2 diabetes mellitus without complications; I10 Essential (primary) hypertension
CPT/HCPCS: 52344; 52356; 74420; 82360; J0131; J1100; J1885; J2250; J2405; J3010; Q9967

== ENCOUNTER 2018-09-20 05:53 | Day surgery (SDC) | payer OTHER, SELFPAY ==
[2018-09-20 06:22] VITALS: BP 137/79; PULSE 93; RESP 20; TEMP 37; O2SAT 97
[2018-09-20] MEDS: Lactated Ringers 1,000 ML 80 ML IV (06:45)
--- NOTE | 2018-09-20 07:01 | HPE_ITS ---
Date of service: 09/20/18 Time of Service: 06:57 Assessment and Plan (1) Left ureteral stone: Current visit: Yes Status: Acute For stent removal, ureteroscopy and removal of any residual stone fragments. History of Present Illness Chief Complaint: Left ureteral stone Narrative: This is a 78-year-old gentle man who was previously identified as having a 7 mm left UPJ stone. He underwent flexible ureteroscopy with holmium laser and removal of stone fragments. A stent was left in place. He returns now for stent removal and staged ureteroscopy with removal of any residual stone fragments. He has had occasional gross hematuria and small clots. He has no fever or chills. His stone analysis shows a chemical composition of 100% uric acid. His urine pH has been between 5.5 and 6.5. Review of Systems Constitutional Denies chills and Denies fever(s) Eyes Denies change in vision ENT Denies sore throat Cardiovascular Denies chest pain, Denies syncope and Denies irregular heart rhythm Respiratory Denies cough and Denies excessive phlegm production Gastrointestinal Denies nausea and Denies vomiting Musculoskeletal Reports arthralgias Neurologic Denies syncope Hematologic/Lymphatic Denies easy bleeding and Denies easy bruising PFSH Social History Smoking/Tobacco Use Status: Former Tobacco Use alcohol intake: former substance use type: does not use Meds Home Medications Medication Instructions Recorded Confirmed Type Humalog U-100 Insulin 0 units SUB-Q TID 03/02/13 09/20/18 History Lantus Solostar U-100 Insulin 50 unit SQ HS 03/02/13 09/20/18 History losartan-hydrochlorothiazide 1 ea PO DAILY 03/02/13 09/12/18 History [Hyzaar] metoprolol tartrate 100 mg PO BID 06/23/18 09/20/18 History finasteride 5 mg tablet 5 mg PO DAILY #90 tab 07/30/18 09/12/18 Rx aspirin [Aspir-81] 81 mg PO DAILY 08/23/18 09/20/18 History naproxen sodium [Aleve] 1 tab PO PRN PRN 08/27/18 09/20/18 History tramadol 50 mg tablet 50 mg PO Q6H PRN #30 tab 08/27/18 09/20/18 Rx Allergies Allergy/AdvReac Type Severity Reaction Status Date / Time No Known Allergies Allergy Unverified 09/20/18 06:26 Exam Const General: cooperative, no acute distress and well developed Neck Neck: supple Resp Auscultation: clear to auscultation bilaterally Cardio Rate: regular rate Rhythm: regular rhythm GI Palpation: soft and no masses Neuro General: alert, awake and oriented x3 Results Last Vital Signs Temp 37.0 C 09/20/18 06:22 Pulse 93 H 09/20/18 06:22 Resp 20 09/20/18 06:22 BP 137/79 09/20/18 06:22 Pulse Ox 97 09/20/18 06:22
--- NOTE | 2018-09-20 07:06 | DI.RAD_ITS ---
SYMPTOM/DIAGNOSIS: LEFT URETERAL STONE FLUOROSCOPY IN OR: Fluoroscopy Time: 25 sec Under fluoroscopic guidance Dr. Reid carried out a left retrograde study. Contrast material is noted in the distal left ureter There is an area of slight irregularity and diminished density involving the proximal to mid portion of the distal ureter in this patient which would be consistent with a stone or conceivably post surgical changes secondary to stone removal. Please see Dr. Reid's procedure report for further information.
[2018-09-20] MEDS: Lidocaine 2% Jelly 6 ML SYR (07:47)
[2018-09-20] MEDS: Omnipaque 300 MG/ML 50 ML BTL (08:06)
--- NOTE | 2018-09-20 08:09 | W.PM.DSUDISC ---
Discharge Plan Disposition Patient Disposition: HOME Condition: Stable Discharge Details Reason For Visit: REMOVAL OF STENT Attending Provider: Krzysztof Reid Primary Care Provider: Gertrude Cohen Home Meds and New Rx's Prescriptions: No Action tramadol 50 mg tablet 50 mg PO Q6H PRN (Reason: pain) Qty: 30 RF: 0 finasteride 5 mg tablet 5 mg PO DAILY Qty: 90 RF: 12 Humalog U-100 Insulin 100 UNIT/1 ML solution Sub-Q TID RF: 0 losartan-hydrochlorothiazide [Hyzaar] 1 EACH tablet 1 ea PO DAILY RF: 0 Lantus Solostar U-100 Insulin 100 UNIT/1 ML insulin pen 50 unit SQ HS RF: 0 metoprolol tartrate 100 mg Tablet 100 mg PO BID RF: 0 aspirin [Aspir-81] 81 mg Tablet,Delayed Release (Dr/Ec) 81 mg PO DAILY RF: 0 naproxen sodium [Aleve] 220 mg Tablet 1 tab PO PRN PRNRF: 0 Discharge Instructions Additional Instructions: F/U @ 1 week for stent removal (let my office know pt has string on his stent) Stand Alone Forms: [facility] ([facility]) Activity:: Activity as Tolerated Diet:: As Tolerated Discharge Orders Discharge Orders: Discharge Order (Routine); Ordered 09/20/18 Ordered By: Krzysztof Reid Discharge Data Discharge Date/Time-TO BE ENTERED AT DEPARTURE: 09/20/18 09:30 Discharge Comment: DC'D HOME WITH VIA PRIVATE CAR,STABLE. DS: Diagnosis Discharge Diagnosis (1) Left ureteral stone: Status: Acute
[2018-09-20 08:14] VITALS: BP 146/76; PULSE 82; RESP 12; TEMP 36.4; O2SAT 97
[2018-09-20 08:19] VITALS: BP 146/79; PULSE 79; RESP 11; TEMP 36.4; O2SAT 95
[2018-09-20 08:24] VITALS: BP 136/67; PULSE 80; RESP 20; TEMP 36.2; O2SAT 97
[2018-09-20 08:37] VITALS: BP 146/77; PULSE 81; RESP 14; TEMP 36.4; O2SAT 97
[2018-09-20 09:10] VITALS: BP 126/71; PULSE 71; RESP 18; TEMP 36.5; O2SAT 96
--- NOTE | 2018-09-20 16:11 | ROE_ITS ---
DATE OF OPERATION: September 20, 2018 PREOPERATIVE DIAGNOSIS: Left ureteral stone. POSTOPERATIVE DIAGNOSIS: Left ureteral stone. PROCEDURE: Cystoscopy, remove left ureteral stone, left rigid ureteroscopy, basket extraction of sto ne fragment, insert left ureteral stent. SURGEON: Krzysztof Reid M.D. ANESTHESIA: General. COMPLICATIONS: None. ESTIMATED BLOOD LOSS: Minimal. HISTORY: This is a 78-year-old gentleman who has a history of bilateral kidney stones as well as mal dder stones. He had undergone ESWL in the past. He had cystoscopy with Holmium laser of bladder sto bernadine and stone evacuation previously. He then underwent left flexible ureteroscopy with Holmium laser of a left UPJ stone, replaced the ureteral stent. He comes in now for a planned staged ureteroscopy with removal of any residual fragments. OPERATIVE REPORT: The patient was brought to the Operating Room on 09/20/18. After successful induc tion of general anesthesia, he was placed in the dorsal lithotomy position. His genitalia was preppe d and draped. A 22 [place] rigid cystoscope was passed through the urethra into the bladder. The bladder was inspec humberto with the 30-degree lens. The pendulous, bulbous, and membranous urethras appeared normal. 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 The bladder neck was entered. The left ureteral orifice was visualized. A stent could be seen protr uding from that left ureteral orifice. The stent was removed and a Glidewire was advanced through the cystoscope into the left ureteral orif ice and maneuvered up the left ureter. A semi-rigid ureteroscope was then introduced through the ure thra into the bladder. We advanced the ureteroscope up the left ureter just below the level of the p elvic brim. We identified a stone fragment which was grasped in a Suellen stone basket and removed in its entirety. Because of the edema caused by this stone extraction we elected to replace the ureteral stent. We ch ose a 4.8 [place] variable-length stent and advanced it over the safety wire. The proximal end of the stent was curled within the renal pelvis and the distal end was curled within the bladder. The safe ty string was left in place and brought through the urethra. The string was taped onto the dorsum of the penis. The stent will be removed in approximately one week.
== END 2018-09-20 09:30 | disposition home or self-care (01) ==
PROVIDERS: PCP Nurse Practitioner Family; Visit Provider Urology
PROC: (CPT 52352; principal; 2018-09-20 07:30)
DX: N20.1 Calculus of ureter (principal)
CPT/HCPCS: 52352; 52332; NC; 74420; J0690; J2405; J3010; Q9967

== ENCOUNTER 2018-11-30 16:47 | Outpatient (REF) | payer OTHER, SELFPAY ==
[2018-11-30 12:55] LABS: Anion Gap 14.3 mmol/L (3-11); BUN 45 mg/dL (7-18); CO2 23.7 mmol/L (21.0-32.0); CREATININE 3.05 mg/dL (0.70-1.30); Chloride 102 mmol/L (98-107); Estimated GFR 20.01 (mL/min/1.73m2); Glucose 280 mg/dL (70-100); Potassium 3.9 mmol/L (3.5-5.1); Sodium 140 mmol/L (136-145)
== END 2018-11-30 17:07 ==
LOC: NCHCN 16:47
PROVIDERS: PCP Nurse Practitioner Family; Visit Provider Nurse Practitioner Family
DX: N18.3 Chronic kidney disease, stage 3 (moderate) (principal)
CPT/HCPCS: 80048

== ENCOUNTER 2019-04-25 14:27 | Outpatient (CLI) | payer OTHER, SELFPAY ==
[2019-04-25 15:00] LABS: Abs Immature Grans 0.03 k/cumm (0.0-0.09); Absolute Basophil Count 0.03 k/cumm (0.0-0.2); Absolute Eosinophil Count 0.39 k/cumm (0.0-0.7); Absolute Lymphocyte Count 0.95 k/cumm (1.2-3.4); Absolute Monocyte Count 0.66 k/cumm (0.11-0.7); Absolute Neutrophil Count 5.04 k/cumm (1.2-6.7); Basophils % 0.4; Eosinophils % 5.5; HCT 38.7 % (40.0-50.0); HGB 13.4 g/dL (13.5-17.5); Immature Grans % 0.4; Lymphocytes % 13.4; Mean Corp. HGB Concentration 34.6 g/dL (32.0-36.0); Mean Corpuscular Hemoglobin 30.9 pg (27.0-33.0); Mean Corpuscular Volume 89.2 fL (80-95); Mean Platelet Volume 9.9 fL (8.0-11.0); Monocytes % 9.3; Platelet Count 163 x1000/uL (130-400); RBC 4.34 m/cumm (4.50-6.00); RBC Distribution Width 13.7 % (11.8-14.1)
[2019-04-25 16:34] LABS: Albumin 2.7 g/dL (3.4-5.0); Anion Gap 12.2 mmol/L (3-11); BUN 49 mg/dL (7-18); CO2 21.8 mmol/L (21.0-32.0); CREATININE 3.12 mg/dL (0.70-1.30); Calcium 8.4 mg/dL (8.5-10.1); Chloride 106 mmol/L (98-107); Estimated GFR 19.49 (mL/min/1.73m2); Glucose 215 mg/dL (70-100); PHOSPHORUS 2.7 mg/dL (2.6-4.7); Potassium 4.3 mmol/L (3.5-5.1); Sodium 140 mmol/L (136-145); Uric Acid 9.7 mg/dL (3.5-7.2)
[2019-04-25 16:56] LABS: Vitamin D 25 Total 27.4 ng/ml (30-100)
[2019-04-26 10:12] LABS: Parathyroid Hormone,Intact 158 pg/ml (19-88)
== END 2019-04-25 14:47 ==
PROVIDERS: PCP Nurse Practitioner Family; Visit Provider Internal Medicine Nephrology
DX: N18.4 Chronic kidney disease, stage 4 (severe) (principal)
CPT/HCPCS: 36415; 80048; 82306; 82040; 82397; 83970; 84100; 84550; 85025

== ENCOUNTER 2019-08-20 14:37 | Outpatient (CLI) | payer OTHER, SELFPAY ==
[2019-08-20 15:33] LABS: Abs Immature Grans 0.02 k/cumm (0.0-0.09); Absolute Basophil Count 0.02 k/cumm (0.0-0.2); Absolute Eosinophil Count 0.35 k/cumm (0.0-0.7); Absolute Lymphocyte Count 0.87 k/cumm (1.2-3.4); Absolute Monocyte Count 0.45 k/cumm (0.11-0.7); Absolute Neutrophil Count 3.73 k/cumm (1.2-6.7); Basophils % 0.4; Eosinophils % 6.4; HCT 40.8 % (40.0-50.0); HGB 13.7 g/dL (13.5-17.5); Immature Grans % 0.4; Mean Corp. HGB Concentration 33.6 g/dL (32.0-36.0); Mean Corpuscular Hemoglobin 29.4 pg (27.0-33.0); Mean Corpuscular Volume 87.6 fL (80-95); Mean Platelet Volume 10.2 fL (8.0-11.0); Monocytes % 8.3; Neutrophils % 68.5; Platelet Count 187 x1000/uL (130-400); RBC 4.66 m/cumm (4.50-6.00); RBC Distribution Width 13.7 % (11.8-14.1); White Blood Cell Count 5.44 k/cumm (4.4-10.8)
[2019-08-20 16:27] LABS: Albumin 3.5 g/dL (3.4-5.0); Anion Gap 14.8 mmol/L (3-11); BUN 53 mg/dL (7-18); CO2 22.2 mmol/L (21.0-32.0); CREATININE 3.12 mg/dL (0.70-1.30); Calcium 8.4 mg/dL (8.5-10.1); Chloride 107 mmol/L (98-107); Estimated GFR 19.44 (mL/min/1.73m2); Glucose 185 mg/dL (74-106); PHOSPHORUS 3.4 mg/dL (2.6-4.7); Sodium 144 mmol/L (136-145); Uric Acid 9.1 mg/dL (3.5-7.2)
[2019-08-21 18:16] LABS: Vitamin D 25 Total 40.1 ng/ml (30-100)
[2019-08-27 16:31] LABS: PTH-Related Peptide 0.6 pmol/L (< or = 4.2)
== END 2019-08-20 14:57 ==
PROVIDERS: PCP Nurse Practitioner Family; Visit Provider Internal Medicine Nephrology
DX: N18.4 Chronic kidney disease, stage 4 (severe) (principal)
CPT/HCPCS: 36415; 80048; 82306; 82040; 82397; 84100; 84550; 85025

== ENCOUNTER 2020-01-07 09:50 | Outpatient (CLI) | payer OTHER, SELFPAY ==
[2020-01-07 16:44] LABS: PROTEIN 96.7 mg/dL
[2020-01-07 16:50] LABS: COMMENT (LAB VIEW ONLY) 128.43 mg/dL; Prot/Crea Ur Ratio 0.75
[2020-01-07 16:50] LABS: Abs Immature Grans 0.04 k/cumm (0.0-0.09); Absolute Basophil Count 0.02 k/cumm (0.0-0.2); Absolute Eosinophil Count 0.44 k/cumm (0.0-0.7); Absolute Lymphocyte Count 1.17 k/cumm (1.2-3.4); Absolute Monocyte Count 0.65 k/cumm (0.11-0.7); Absolute Neutrophil Count 4.39 k/cumm (1.2-6.7); Basophils % 0.3; Eosinophils % 6.6; HCT 41.9 % (40.0-50.0); HGB 13.9 g/dL (13.5-17.5); Immature Grans % 0.6 %; Lymphocytes % 17.4; Mean Corp. HGB Concentration 33.2 g/dL (32.0-36.0); Mean Corpuscular Hemoglobin 29.6 pg (27.0-33.0); Mean Corpuscular Volume 89.1 fL (80-95); Mean Platelet Volume 10.5 fL (8.0-11.0); Monocytes % 9.7; Neutrophils % 65.4; Platelet Count 188 x1000/uL (130-400); RBC Distribution Width 14.9 % (11.8-14.1); White Blood Cell Count 6.71 k/cumm (4.4-10.8)
[2020-01-07 17:24] LABS: Albumin 3.4 g/dL (3.4-5.0); Anion Gap 12.4 mmol/L (3-11); BUN 38 mg/dL (7-18); CO2 23.6 mmol/L (21.0-32.0); CREATININE 2.88 mg/dL (0.70-1.30); Calcium 8.6 mg/dL (8.5-10.1); Chloride 106 mmol/L (98-107); Estimated GFR 21.32 (mL/min/1.73m2); Glucose 162 mg/dL (74-106); PHOSPHORUS 5.1 mg/dL (2.6-4.7); Potassium 4.6 mmol/L (3.5-5.1); Sodium 142 mmol/L (136-145); Uric Acid 6.2 mg/dL (3.5-7.2)
[2020-01-08 10:54] LABS: Parathyroid Hormone,Intact 203 pg/mL (19-88)
== END 2020-01-07 10:10 ==
PROVIDERS: PCP Nurse Practitioner Family; Visit Provider Internal Medicine Nephrology
DX: N18.4 Chronic kidney disease, stage 4 (severe) (principal)
CPT/HCPCS: 36415; 80048; 82040; 82565; 83970; 84100; 84156; 84550; 85025

== ENCOUNTER 2020-03-05 02:25 | Outpatient (CLI) | payer OTHER, SELFPAY ==
[2020-03-05 09:53] LABS: Abs Immature Grans 0.03 k/cumm (0.0-0.09); Absolute Basophil Count 0.02 k/cumm (0.0-0.2); Absolute Eosinophil Count 0.43 k/cumm (0.0-0.7); Absolute Lymphocyte Count 1.11 k/cumm (1.2-3.4); Absolute Monocyte Count 0.66 k/cumm (0.11-0.7); Absolute Neutrophil Count 3.81 k/cumm (1.2-6.7); Basophils % 0.3; Eosinophils % 7.1; HCT 41.9 % (40.0-50.0); HGB 14.2 g/dL (13.5-17.5); Immature Grans % 0.5 %; Lymphocytes % 18.3; Mean Corp. HGB Concentration 33.9 g/dL (32.0-36.0); Mean Corpuscular Volume 88.4 fL (80-95); Monocytes % 10.9; Neutrophils % 62.9; Platelet Count 192 x1000/uL (130-400); RBC 4.74 m/cumm (4.50-6.00); RBC Distribution Width 14.1 % (11.8-14.1); White Blood Cell Count 6.06 k/cumm (4.4-10.8)
[2020-03-05 10:36] LABS: PROTEIN 74.1 mg/dL
[2020-03-05 10:39] LABS: Albumin 3.5 g/dL (3.4-5.0); Anion Gap 11.5 mmol/L (3-11); BUN 48 mg/dL (7-18); CO2 24.5 mmol/L (21.0-32.0); CREATININE 3.05 mg/dL (0.70-1.30); Calcium 8.6 mg/dL (8.5-10.1); Chloride 105 mmol/L (98-107); Estimated GFR 19.96 (mL/min/1.73m2); Glucose 187 mg/dL (74-106); PHOSPHORUS 4.5 mg/dL (2.6-4.7); Potassium 4.2 mmol/L (3.5-5.1); Sodium 141 mmol/L (136-145); Uric Acid 6.4 mg/dL (3.5-7.2)
[2020-03-05 10:40] LABS: COMMENT (LAB VIEW ONLY) 123.97 mg/dL; Prot/Crea Ur Ratio 0.59
[2020-03-06 11:16] LABS: Parathyroid Hormone,Intact 83 pg/mL (19-88)
== END 2020-03-05 02:45 ==
PROVIDERS: PCP Nurse Practitioner Family; Visit Provider Internal Medicine Nephrology
DX: N18.4 Chronic kidney disease, stage 4 (severe) (principal)
CPT/HCPCS: 36415; 80048; 82040; 82565; 83970; 84100; 84156; 84550; 85025

== ENCOUNTER 2020-07-02 01:30 | Outpatient (CLI) | payer OTHER, SELFPAY ==
[2020-07-02 12:43] LABS: Abs Immature Grans 0.05 10^3/uL (0.0-0.06); Absolute Basophil Count 0.03 10^3/uL (0.0-0.2); Absolute Eosinophil Count 0.31 10^3/uL (0.0-0.7); Absolute Lymphocyte Count 0.94 10^3/uL (1.2-3.4); Absolute Neutrophil Count 4.13 10^3/uL (1.2-6.7); Basophils % 0.5; Eosinophils % 5.3; HCT 40.8 % (40.0-50.0); HGB 13.8 g/dL (13.5-17.5); Immature Grans % 0.9; MCH 30.8 pg (27.0-33.0); MCHC 33.8 % (32.0-36.0); MCV 91.1 fL (80-95); MPV 10.2 fL (8.0-11.0); Monocytes % 6.8; Neutrophils % 70.5; Nucleated RBC 0 %; Platelet Count 173 10^3/uL (130-400); RBC 4.48 10^6/uL (4.36-5.78); RDW 13.2 % (11.8-14.1); RDW-SD 43.4 fL; WBC 5.86 10^3/uL (4.4-10.8)
[2020-07-02 13:17] LABS: Albumin 3.4 g/dL (3.4-5.0); Anion Gap 10.2 mmol/L (3-11); BUN 37 mg/dL (7-18); CO2 24.8 mmol/L (21.0-32.0); CREATININE 2.93 mg/dL (0.70-1.30); Calcium 8.4 mg/dL (8.5-10.1); Chloride 105 mmol/L (98-107); Glucose 344 mg/dL (74-106); PHOSPHORUS 3.5 mg/dL (2.6-4.7); Potassium 4.7 mmol/L (3.5-5.1); Sodium 140 mmol/L (136-145); Uric Acid 5.5 mg/dL (3.5-7.2)
[2020-07-02 15:37] LABS: PROTEIN 134.5 mg/dL
[2020-07-02 15:42] LABS: COMMENT (LAB VIEW ONLY) 119.46 mg/dL; Prot/Crea Ur Ratio 1.12
[2020-07-03 10:50] LABS: Parathyroid Hormone,Intact 103 pg/mL (19-88)
== END 2020-07-02 01:50 ==
PROVIDERS: PCP Nurse Practitioner Family; Visit Provider Internal Medicine Nephrology
DX: N18.4 Chronic kidney disease, stage 4 (severe) (principal)
CPT/HCPCS: 36415; 80048; 82040; 82565; 83970; 84100; 84156; 84550; 85025